=== PATIENT | male | born 1960 | race Caucasian/White ===

== ENCOUNTER 2020-09-15 07:56 | Outpatient (REF) | payer OTHER, SELFPAY ==
[2020-09-15 10:14] LABS: MANUAL DIFF FLAG NO
[2020-09-15 10:19] LABS: Basophils Absolute Auto 0.1 X10*3/uL (0.0-0.2); Basophils Percent Auto 0.9 % (0-2); Eosinophils Absolute Auto 0.4 X10*3/uL (0.0-0.4); Eosinophils Percent Auto 3.8 % (0-4); Hematocrit 45.3 % (42-52); Hemoglobin 15.9 g/dl (14.0-18.0); Imm Gran Abs Auto 0.03 X10*3/uL (0.00-0.03); Imm Gran Pct Auto 0.3 % (0.0-0.4); Lymphocytes Absolute Auto 2.5 X10*3/uL (1.2-4.9); Lymphocytes Percent Auto 27.1 % (20-40); Mean Corpuscular HGB Conc 35.1 g/dl (31.0-36.0); Mean Corpuscular Hemoglobin 32.1 pg (27.0-33.0); Mean Corpuscular Volume 91.5 fL (80-98); Mean Platelet Volume 10.7 fL (9.4-12.4); Monocytes Absolute Auto 0.6 X10*3/uL (0.1-1.2); Monocytes Percent Auto 6.4 % (2-11); Neutrophils Absolute Auto 5.6 X10*3/uL (2.0-8.3); Neutrophils Percent Auto 61.5 % (45-73); Platelet Count 204 X10*3/uL (160-400); Red Blood Count 4.95 X10*6/uL (4.60-5.80); Red Cell Distribution Width 11.9 % (11.0-16.0); White Blood Count 9.2 X10*3/uL (4.8-10.8)
[2020-09-15 10:44] LABS: Alanine Aminotransferase 15 U/L (0-40); Albumin Level 4.1 g/dL (3.5-5.0); Alkaline Phosphatase 92 U/L (39-117); Anion Gap 10 (12-20); Aspartate Amino Transferase 15 U/L (5-37); Bilirubin Total 1.1 mg/dL (0.0-1.0); Blood Urea Nitrogen 16 mg/dL (9-16); Calcium 8.7 mg/dL (8.4-10.2); Carbon Dioxide 30 mmol/L (22-29); Chloride 103 mmol/L (96-108); Cholesterol 158 mg/dL; Estimated Glomerular Filt Rate > 60; Glucose Fasting 93 mg/dL (60-99); HDL Cholesterol 41 mg/dL; LDL Cholesterol Calculated 101 mg/dl; Potassium 4.6 mmol/L (3.3-5.1); Sodium 138 mmol/L (135-145); Total Protein 6.3 g/dL (6.5-8.0); Triglycerides 80 mg/dL
== END 2020-09-15 07:57 | disposition home or self-care (01) ==
LOC: HO.10HDL 07:56
PROVIDERS: Visit Provider Internal Medicine Medical Oncology
DX: E78.2 Mixed hyperlipidemia (principal)
CPT/HCPCS: 36415; 80053; 80061; 85025

== ENCOUNTER → 2020-11-17 14:51 | Outpatient (BNVA) | payer OTHER, SELFPAY | PROVIDERS: PCP Internal Medicine Medical Oncology; Visit Provider Internal Medicine Cardiovascular Disease | DX: I25.10 Atherosclerotic heart disease of native coronary artery without angina pectoris (principal) | CPT/HCPCS: 93005 ==

== ENCOUNTER 2021-01-05 07:45 | Outpatient (REF) | payer OTHER, SELFPAY ==
[2021-01-05 08:37] LABS: MANUAL DIFF FLAG NO
[2021-01-05 08:47] LABS: Basophils Absolute Auto 0.1 X10*3/uL (0.0-0.2); Basophils Percent Auto 0.8 % (0-2); Eosinophils Absolute Auto 0.4 X10*3/uL (0.0-0.4); Eosinophils Percent Auto 5.1 % (0-4); Hematocrit 39.3 % (42-52); Hemoglobin 13.8 g/dl (14.0-18.0); Imm Gran Abs Auto 0.03 X10*3/uL (0.00-0.03); Imm Gran Pct Auto 0.4 % (0.0-0.4); Mean Corpuscular HGB Conc 35.1 g/dl (31.0-36.0); Mean Corpuscular Hemoglobin 32.1 pg (27.0-33.0); Mean Corpuscular Volume 91.4 fL (80-98); Mean Platelet Volume 10.5 fL (9.4-12.4); Monocytes Absolute Auto 0.5 X10*3/uL (0.1-1.2); Monocytes Percent Auto 6.8 % (2-11); Neutrophils Absolute Auto 4.8 X10*3/uL (2.0-8.3); Neutrophils Percent Auto 60.9 % (45-73); Platelet Count 161 X10*3/uL (160-400); Red Cell Distribution Width 12.2 % (11.0-16.0); White Blood Count 7.8 X10*3/uL (4.8-10.8)
[2021-01-05 09:08] LABS: Alanine Aminotransferase 14 U/L (0-40); Albumin Level 3.8 g/dL (3.5-5.0); Alkaline Phosphatase 100 U/L (39-117); Anion Gap 10 (12-20); Aspartate Amino Transferase 14 U/L (5-37); Blood Urea Nitrogen 15 mg/dL (9-16); Calcium 8.8 mg/dL (8.4-10.2); Carbon Dioxide 26 mmol/L (22-29); Chloride 107 mmol/L (96-108); Cholesterol 150 mg/dL; Estimated Glomerular Filt Rate > 60; Glucose Fasting 93 mg/dL (60-99); HDL Cholesterol 46 mg/dL; LDL Cholesterol Calculated 88 mg/dl; Potassium 4.5 mmol/L (3.3-5.1); Sodium 138 mmol/L (135-145); Triglycerides 84 mg/dL
[2021-01-06 14:22] LABS: Lyme Abs Screen <0.90 index
== END 2021-01-05 07:46 | disposition home or self-care (01) ==
LOC: HO.LAB 07:45
PROVIDERS: PCP Internal Medicine Medical Oncology; Visit Provider Internal Medicine Medical Oncology
DX: I10 Essential (primary) hypertension (principal); E78.2 Mixed hyperlipidemia
CPT/HCPCS: 36415; 80053; 80061; 85025; 86617; 86618

== ENCOUNTER → 2021-02-16 15:16 | Outpatient (BNVA) | payer OTHER, SELFPAY | PROVIDERS: PCP Internal Medicine Medical Oncology; Visit Provider Internal Medicine Cardiovascular Disease ==

== ENCOUNTER → 2021-08-17 14:57 | Outpatient (BNVA) | payer OTHER, SELFPAY | PROVIDERS: PCP Internal Medicine Medical Oncology; Visit Provider Internal Medicine Cardiovascular Disease ==

== ENCOUNTER 2021-08-26 13:56 | Outpatient (REF) | payer OTHER, SELFPAY ==
--- NOTE | ~2021-08-26 | US_ITS ---
EXAMINATION: ULTRASOUND RASHAWN COMPLETE CLINICAL INFORMATION: Leg pain. COMPARISON: None TECHNIQUE: Ankle brachial indices were calculated in the bilateral lower extremities. FINDINGS: Right ankle-brachial index is calculated as 1.15 on the right and 1.06 on the left. US/US RASHAWN complete IMPRESSION: Ankle brachial indices are in the range of normal, no significant arterial disease (0.97-1.25)
== END 2021-08-26 13:57 | disposition home or self-care (01) ==
LOC: HO.US 13:56
PROVIDERS: Visit Provider Internal Medicine Cardiovascular Disease
DX: M79.606 Pain in leg, unspecified (principal)
CPT/HCPCS: 93923

== ENCOUNTER → 2021-10-05 15:41 | Outpatient (BNVA) | payer OTHER, SELFPAY | PROVIDERS: PCP Internal Medicine Medical Oncology; Visit Provider Internal Medicine Cardiovascular Disease ==

== ENCOUNTER 2021-10-14 07:42 | Outpatient (REF) | payer OTHER, SELFPAY ==
[2021-10-14 07:53] LABS: MANUAL DIFF FLAG NO
[2021-10-14 08:16] LABS: Basophils Absolute Auto 0.1 X10*3/uL (0.0-0.2); Basophils Percent Auto 0.8 % (0-2); Eosinophils Absolute Auto 0.3 X10*3/uL (0.0-0.4); Eosinophils Percent Auto 2.4 % (0-4); Hematocrit 50.3 % (42.0-52.0); Hemoglobin 17.6 g/dl (14.0-18.0); Imm Gran Abs Auto 0.05 X10*3/uL (0.00-0.03); Imm Gran Pct Auto 0.4 % (0.0-0.4); Lymphocytes Absolute Auto 2.5 X10*3/uL (1.2-4.9); Lymphocytes Percent Auto 19.5 % (20-40); Mean Corpuscular Hemoglobin 32.6 pg (27.0-33.0); Mean Corpuscular Volume 93.1 fL (80.0-98.0); Mean Platelet Volume 10.2 fL (9.4-12.4); Monocytes Absolute Auto 0.9 X10*3/uL (0.1-1.2); Monocytes Percent Auto 6.7 % (2-11); Neutrophils Percent Auto 70.2 % (45-73); Platelet Count 266 X10*3/uL (160-400); Red Cell Distribution Width 12.5 % (11.0-16.0); White Blood Count 12.8 X10*3/uL (4.8-10.8)
[2021-10-14 08:44] LABS: Alanine Aminotransferase 21 U/L (0-40); Albumin Level 4.3 g/dL (3.5-5.0); Alkaline Phosphatase 111 U/L (39-117); Anion Gap 15 (12-20); Aspartate Amino Transferase 18 U/L (5-37); Bilirubin Total 1.1 mg/dL (0.0-1.0); Blood Urea Nitrogen 15 mg/dL (9-16); Calcium 9.6 mg/dL (8.4-10.2); Carbon Dioxide 24 mmol/L (22-29); Chloride 106 mmol/L (96-108); Cholesterol 130 mg/dL; Estimated Glomerular Filt Rate > 60; Glucose Fasting 96 mg/dL (60-99); HDL Cholesterol 42 mg/dL; LDL Cholesterol Calculated 76 mg/dl; Potassium 4.6 mmol/L (3.3-5.1); Sodium 140 mmol/L (135-145); Total Protein 6.8 g/dL (6.5-8.0); Triglycerides 64 mg/dL
[2021-10-14 09:06] LABS: Prostate Specific Antigen 0.96 ng/mL (<0.05-4.0)
== END 2021-10-14 07:43 | disposition home or self-care (01) ==
LOC: HO.LAB 07:42
PROVIDERS: PCP Internal Medicine Medical Oncology; Visit Provider Internal Medicine Medical Oncology
DX: I10 Essential (primary) hypertension (principal); E78.2 Mixed hyperlipidemia; M19.90 Unspecified osteoarthritis, unspecified site; I25.10 Atherosclerotic heart disease of native coronary artery without angina pectoris; N52.9 Male erectile dysfunction, unspecified; Z12.5 Encounter for screening for malignant neoplasm of prostate
CPT/HCPCS: 36415; 80053; 80061; 84153; 85025

== ENCOUNTER 2022-02-16 07:20 | Outpatient (REF) | payer OTHER, SELFPAY ==
[2022-02-16 07:37] LABS: MANUAL DIFF FLAG NO
[2022-02-16 07:59] LABS: Basophils Absolute Auto 0.1 X10*3/uL (0.0-0.2); Basophils Percent Auto 0.9 % (0-2); Eosinophils Absolute Auto 0.5 X10*3/uL (0.0-0.4); Eosinophils Percent Auto 5.2 % (0-4); Hematocrit 38.8 % (42.0-52.0); Imm Gran Abs Auto 0.03 X10*3/uL (0.00-0.03); Imm Gran Pct Auto 0.3 % (0.0-0.4); Lymphocytes Percent Auto 23.1 % (20-40); Mean Corpuscular HGB Conc 33.5 g/dl (31.0-36.0); Mean Corpuscular Hemoglobin 30.4 pg (27.0-33.0); Mean Corpuscular Volume 90.7 fL (80.0-98.0); Mean Platelet Volume 10.5 fL (9.4-12.4); Monocytes Absolute Auto 0.5 X10*3/uL (0.1-1.2); Monocytes Percent Auto 6.1 % (2-11); Neutrophils Absolute Auto 5.6 x10*3/uL (2.0-8.3); Neutrophils Percent Auto 64.4 % (45-73); Platelet Count 214 X10*3/uL (160-400); Red Blood Count 4.28 X10*6/uL (4.60-5.80); Red Cell Distribution Width 12.5 % (11.0-16.0); White Blood Count 8.7 X10*3/uL (4.8-10.8)
[2022-02-16 08:12] LABS: Alanine Aminotransferase 11 U/L (0-40); Albumin Level 3.8 g/dL (3.5-5.0); Alkaline Phosphatase 94 U/L (39-117); Anion Gap 10 (12-20); Aspartate Amino Transferase 13 U/L (5-37); Bilirubin Total 0.7 mg/dL (0.0-1.0); Blood Urea Nitrogen 17 mg/dL (9-16); Calcium 8.6 mg/dL (8.4-10.2); Carbon Dioxide 26 mmol/L (22-29); Chloride 108 mmol/L (96-108); Cholesterol 124 mg/dL; Estimated Glomerular Filt Rate > 60; Glucose Fasting 104 mg/dL (60-99); HDL Cholesterol 42 mg/dL; LDL Cholesterol Calculated 72 mg/dl; Potassium 4.7 mmol/L (3.3-5.1); Sodium 139 mmol/L (135-145); Total Protein 5.9 g/dL (6.5-8.0); Triglycerides 50 mg/dL
[2022-02-16 08:34] LABS: Prostate Specific Antigen 0.67 ng/mL (<0.05-4.0)
== END 2022-02-16 07:21 | disposition home or self-care (01) ==
LOC: HO.LAB 07:20
PROVIDERS: PCP Internal Medicine Medical Oncology; Visit Provider Internal Medicine Medical Oncology
DX: Z12.5 Encounter for screening for malignant neoplasm of prostate (principal); I10 Essential (primary) hypertension; E78.2 Mixed hyperlipidemia; N52.9 Male erectile dysfunction, unspecified
CPT/HCPCS: 36415; 80053; 80061; 84153; 85025

== ENCOUNTER → 2022-04-12 15:40 | Outpatient (BNVA) | payer OTHER, SELFPAY | PROVIDERS: PCP Internal Medicine Medical Oncology; Referring Provider Internal Medicine Medical Oncology; Visit Provider Internal Medicine Cardiovascular Disease | DX: I48.0 Paroxysmal atrial fibrillation (principal); I25.10 Atherosclerotic heart disease of native coronary artery without angina pectoris | CPT/HCPCS: 93005 ==

== ENCOUNTER → 2022-05-12 07:25 | Outpatient (REF) | payer OTHER, SELFPAY ==
--- NOTE | 2022-05-12 07:41 | HM_ITS ---
* Total monitoring time 3 days. * Underlying rhythm is sinus and atrial fibrillation. Atrial fibrillation burden is 45%. * Average ventricular rate 69/Min. Range 43 to 169/Min. About 6% of the time, rate greater than 100/Min. * Frequent supraventricular ectopy. Pa[place] of 3%. * Rare ventricular ectopy with minimal burden. * No patient diary. * Overall, high burden of atrial fibrillation with some rapid rates. MTDD
--- NOTE | 2022-05-12 07:41 | CA_ITS ---
Transthoracic Echocardiogram Patient (Last, First, Middle): Dino Sims A Gender: Male Date of : 1960 Age: 61 Procedure Date: 05/12/2022 Procedure Type: Transthoracic Echocardiogram Location: OP Height: 182.88 cm Weight: 81.65 kg BSA: 2.04 m2 Heart Rate: 56 bpm BP: 125 / 90 mmHg Chief Writer: DYLAN Mitchell MD: Eric Lucas MD Symptoms: I48.0 - Paroxysmal atrial fibrillation Study Quality: Good ECG Rhythm: Atrial Fibrillation Conclusions: - Normal left ventricular size, thickness, systolic function, and wall motion. The visually estimated ejection fraction is between 55-60%. Diastolic function is indeterminate on the basis of available data. - Normal right ventricular cavity size and systolic function. - There is mild dilatation of the sinuses of Valsalva measuring 3.80 cm and mild dilatation of the ascending aorta measuring 3.40 cm. Findings Left Ventricle Normal left ventricular size, thickness, systolic function, and wall motion. The visually estimated ejection fraction is between 55-60%. Diastolic function is indeterminate on the basis of available data. Right Ventricle Normal right ventricular cavity size and systolic function. Atria The left atrium is normal in size. The right atrium is normal in size. Aortic Valve The aortic valve structure and function is likely normal. There is no aortic valve stenosis. There is no aortic valve regurgitation. Mitral Valve The mitral valve appears normal. There is no mitral valve regurgitation. There is no mitral valve stenosis. Pulmonic Valve The pulmonic valve is likely normal. Tricuspid Valve Normal tricuspid valve structure and function. There is no tricuspid valve regurgitation. Normal right atrial pressure. There is no evidence of pulmonary hypertension. Great Vessels There is mild dilatation of the sinuses of Valsalva measuring 3.80 cm and mild dilatation of the ascending aorta measuring 3.40 cm. Venous The inferior vena cava is normal in size and collapses greater than 50% with inspiration. Pericardium/Pleural There is no evidence of pericardial effusion. Prior Study Comparison Changes noted compared to prior study dated: 09/09/2018. Mildly dilated aortic root and ascending aorta. The patient is in Afib during this study. Measurements 2D Linear Measurements IVSd: 1.17 0.6-0.9/0.6-1.0 cm LVIDd: 3.88 3.9-5.3/4.2-5.9 cm LVIDd Index: 1.90 2.4-3.2/2.2-3.1 cm/m2 LVIDs: 2.94 2.0-3.6 cm LVPWd: 1.22 0.7-1.1 cm LA Diam: 3.20 2.7-3.8/3.0-4.0 cm LAIDs Index: 1.57 1.5-2.3 cm/m2 LV Mass: 195.60 67-162/88-224 g LV Mass Index: 95.88 43-95/49-115 g/m2 LVOT Diam: 2.20 3.0+(-)1.3 cm 2D Systolic Function EF 4C: 50.80 >55% EF 2C: 55.80 >55% EF BiP: 52.80 >55% Aortic Valve AoV Pk Luiz: 0.81 AoV Mn Luiz: 0.58 AoV VTI: 0.15 AoV Pk Grad: 3.00 Aov Mn Grad: 2.00 EVA Cont.VTI: 2.41 LVOT LVOT Pk Luiz: 0.49 LVOT Mn Luiz: 0.36 LVOT VTI: 0.10 LVOT Pk Grad: 1.00 LVOT Mn Grad: 1.00 LVOT Diam: 2.20 LVOT Area: 3.80 Right Ventricle TAPSE (mm): 15.50 TVS' Luiz: 9.25 Tricuspid Valve TR Pk Luiz: 1.64 TR Pk Grad: 11.00 RA Press: 3.00 RVSP: 14.00 Great Vessels Aorta Sinus of Valsalva: 3.80 2.0-3.5 cm Ao Asc: 3.40 2.1-3.4 cm Pulmonary Valve PV Pk Luiz: 0.61 Peak PV Grad: 1.00 Updated in Other Vendor System with Status of Final Eric Lucas MD electronically signed on 05/12/2022 9:10:27 PM with status of Final
== END ==
LOC: HO.CARD 07:25
PROVIDERS: Visit Provider Internal Medicine Cardiovascular Disease
DX: I48.0 Paroxysmal atrial fibrillation (principal)
CPT/HCPCS: 93242; 93306

== ENCOUNTER 2022-08-28 17:05 | Outpatient (REF) | payer OTHER, SELFPAY ==
--- NOTE | ~2022-08-28 | XR_ITS ---
EXAMINATION: XR SHOULDER, RIGHT CLINICAL INFORMATION: Pain. COMPARISON: None TECHNIQUE: AP external rotation, Grashey, scapular Y, and axillary views of the right shoulder. FINDINGS: Bony alignment and mineralization are normal. The glenohumeral joint is intact. There is minimal osteoarthritic change of the glenohumeral joint. The acromioclavicular and coracoclavicular intervals are normal. No fracture or dislocation is seen. There is no soft tissue calcification or foreign body. No right pneumothorax is seen. XR/XR shoulder RT min 2V IMPRESSION: 1. No fracture or dislocation is seen. 2. There is minimal osteoarthritic change of the right glenohumeral joint. EXAMINATION: XR SHOULDER, LEFT CLINICAL INFORMATION: Pain. COMPARISON: Radiographs dated 04/20/2020. TECHNIQUE: AP external rotation, Grashey, scapular Y, and axillary views of the left shoulder. FINDINGS: Bony alignment and mineralization are normal. The glenohumeral joint is intact and shows mild osteoarthritic change. The acromioclavicular and coracoclavicular intervals are normal. The glenohumeral joint is intact. There is mild cortical irregularity of the greater tuberosity of the proximal left humerus. No fracture or dislocation is seen. There is no soft tissue calcification or foreign body. No left pneumothorax is seen. IMPRESSION: 1. No fracture or dislocation is seen. 2. There is mild osteoarthritic change of the left glenohumeral joint. 3. Findings suggest possible mild left rotator cuff impingement.
--- NOTE | ~2022-08-28 | XR_ITS ---
EXAMINATION: XR SHOULDER, RIGHT CLINICAL INFORMATION: Pain. COMPARISON: None TECHNIQUE: AP external rotation, Grashey, scapular Y, and axillary views of the right shoulder. FINDINGS: Bony alignment and mineralization are normal. The glenohumeral joint is intact. There is minimal osteoarthritic change of the glenohumeral joint. The acromioclavicular and coracoclavicular intervals are normal. No fracture or dislocation is seen. There is no soft tissue calcification or foreign body. No right pneumothorax is seen. XR/XR shoulder LT min 2V IMPRESSION: 1. No fracture or dislocation is seen. 2. There is minimal osteoarthritic change of the right glenohumeral joint. EXAMINATION: XR SHOULDER, LEFT CLINICAL INFORMATION: Pain. COMPARISON: Radiographs dated 04/20/2020. TECHNIQUE: AP external rotation, Grashey, scapular Y, and axillary views of the left shoulder. FINDINGS: Bony alignment and mineralization are normal. The glenohumeral joint is intact and shows mild osteoarthritic change. The acromioclavicular and coracoclavicular intervals are normal. The glenohumeral joint is intact. There is mild cortical irregularity of the greater tuberosity of the proximal left humerus. No fracture or dislocation is seen. There is no soft tissue calcification or foreign body. No left pneumothorax is seen. IMPRESSION: 1. No fracture or dislocation is seen. 2. There is mild osteoarthritic change of the left glenohumeral joint. 3. Findings suggest possible mild left rotator cuff impingement.
== END 2022-08-28 17:06 | disposition home or self-care (01) ==
LOC: HO.HOSX 17:05
PROVIDERS: Visit Provider Physician Assistant
DX: M75.101 Unspecified rotator cuff tear or rupture of right shoulder, not specified as traumatic (principal); M75.102 Unspecified rotator cuff tear or rupture of left shoulder, not specified as traumatic
CPT/HCPCS: 20610; 73030; J1040

== ENCOUNTER → 2023-01-15 15:34 | Outpatient (BNVA) | payer OTHER, SELFPAY | PROVIDERS: PCP Internal Medicine Medical Oncology; Referring Provider Internal Medicine Medical Oncology; Visit Provider Internal Medicine Cardiovascular Disease | DX: I48.0 Paroxysmal atrial fibrillation (principal); I25.10 Atherosclerotic heart disease of native coronary artery without angina pectoris | CPT/HCPCS: 93005 ==

== ENCOUNTER 2023-02-09 08:49 | Outpatient (REF) | payer OTHER, SELFPAY ==
[2023-02-09 09:13] LABS: MANUAL DIFF FLAG NO
[2023-02-09 09:44] LABS: Basophils Absolute Auto 0.1 X10*3/uL (0.0-0.2); Basophils Percent Auto 1.1 % (0-2); Eosinophils Absolute Auto 0.4 X10*3/uL (0.0-0.4); Eosinophils Percent Auto 5.3 % (0-4); Hematocrit 36.2 % (42.0-52.0); Hemoglobin 11.5 g/dl (14.0-18.0); Imm Gran Abs Auto 0.02 X10*3/uL (0.00-0.03); Imm Gran Pct Auto 0.3 % (0.0-0.4); Lymphocytes Absolute Auto 1.8 X10*3/uL (1.2-4.9); Lymphocytes Percent Auto 24.5 % (20-40); Mean Corpuscular HGB Conc 31.8 g/dl (31.0-36.0); Mean Corpuscular Hemoglobin 25.1 pg (27.0-33.0); Mean Corpuscular Volume 78.9 fL (80.0-98.0); Mean Platelet Volume 10.2 fL (9.4-12.4); Monocytes Absolute Auto 0.5 X10*3/uL (0.1-1.2); Monocytes Percent Auto 7.3 % (2-11); Neutrophils Absolute Auto 4.6 x10*3/uL (2.0-8.3); Neutrophils Percent Auto 61.5 % (45-73); Platelet Count 240 X10*3/uL (160-400); Red Blood Count 4.59 X10*6/uL (4.60-5.80); Red Cell Distribution Width 14.8 % (11.0-16.0); White Blood Count 7.4 X10*3/uL (4.8-10.8)
[2023-02-09 10:45] LABS: Alanine Aminotransferase 18 U/L (0-40); Albumin Level 3.9 g/dL (3.5-5.0); Alkaline Phosphatase 117 U/L (39-117); Anion Gap 13 (12-20); Aspartate Amino Transferase 16 U/L (5-37); Bilirubin Total 0.7 mg/dL (0.0-1.0); Blood Urea Nitrogen 18 mg/dL (9-16); Calcium 9.2 mg/dL (8.4-10.2); Carbon Dioxide 25 mmol/L (22-29); Chloride 109 mmol/L (96-108); Cholesterol 121 mg/dL; Estimated Glomerular Filt Rate > 60; Glucose Random 86 mg/dL (60-115); HDL Cholesterol 43 mg/dL; LDL Cholesterol Calculated 70 mg/dl; Potassium 5.1 mmol/L (3.3-5.1); Sodium 142 mmol/L (135-145); Total Protein 6.4 g/dL (6.5-8.0); Triglycerides 41 mg/dL
[2023-02-09 10:53] LABS: Prostate Specific Antigen 0.81 ng/mL (<0.05-4.0)
== END 2023-02-09 08:50 | disposition home or self-care (01) ==
LOC: HO.LAB 08:49
PROVIDERS: PCP Internal Medicine Medical Oncology; Visit Provider Internal Medicine Medical Oncology
DX: Z12.5 Encounter for screening for malignant neoplasm of prostate (principal); I10 Essential (primary) hypertension; E78.2 Mixed hyperlipidemia; N40.0 Benign prostatic hyperplasia without lower urinary tract symptoms
CPT/HCPCS: 36415; 80053; 80061; 84153; 85025

== ENCOUNTER 2023-02-24 07:27 | Outpatient (REF) | payer OTHER, SELFPAY ==
[2023-02-24 07:58] LABS: MANUAL DIFF FLAG NO
[2023-02-24 08:27] LABS: Basophils Absolute Auto 0.1 X10*3/uL (0.0-0.2); Basophils Percent Auto 1.3 % (0-2); Eosinophils Absolute Auto 0.4 X10*3/uL (0.0-0.4); Eosinophils Percent Auto 5.4 % (0-4); Hemoglobin 11.7 g/dl (14.0-18.0); Imm Gran Abs Auto 0.03 X10*3/uL (0.00-0.03); Imm Gran Pct Auto 0.4 % (0.0-0.4); Immature Retic Fraction 16.5 % (2.3-13.4); Lymphocytes Absolute Auto 2.1 X10*3/uL (1.2-4.9); Mean Corpuscular HGB Conc 31.6 g/dl (31.0-36.0); Mean Corpuscular Volume 79.1 fL (80.0-98.0); Mean Platelet Volume 10.8 fL (9.4-12.4); Monocytes Absolute Auto 0.6 X10*3/uL (0.1-1.2); Neutrophils Absolute Auto 4.3 x10*3/uL (2.0-8.3); Neutrophils Percent Auto 56.9 % (45-73); Platelet Count 227 X10*3/uL (160-400); Red Blood Count 4.68 X10*6/uL (4.60-5.80); Red Cell Distribution Width 15.4 % (11.0-16.0); Retic HGB Equivalent 28.9 pg (30.0-35.0); Reticulocyte Percent 1.2 % (0.5-1.8); Reticulocytes Absolute 0.054 X10*6/uL (0.026-0.095); White Blood Count 7.6 X10*3/uL (4.8-10.8)
[2023-02-24 08:46] LABS: Iron 37 mcg/dL (45-160); Percent Iron Saturation 10 % (15-50); Total Iron Binding Capacity 355 mcg/dL (228-428); Unsaturated Iron Binding 318 ug/dL
[2023-02-24 09:02] LABS: Ferritin 15 ng/mL (20-250)
== END 2023-02-24 07:28 | disposition home or self-care (01) ==
LOC: HO.LAB 07:27
PROVIDERS: PCP Internal Medicine Medical Oncology; Visit Provider Internal Medicine Medical Oncology
DX: I10 Essential (primary) hypertension (principal); D50.9 Iron deficiency anemia, unspecified
CPT/HCPCS: 36415; 82728; 83540; 85025; 85045

== ENCOUNTER 2023-03-28 06:18 | Outpatient (REF) | payer OTHER, SELFPAY ==
[2023-03-28 06:28] LABS: MANUAL DIFF FLAG NO
[2023-03-28 07:29] LABS: Basophils Absolute Auto 0.1 X10*3/uL (0.0-0.2); Basophils Percent Auto 1.1 % (0-2); Eosinophils Absolute Auto 0.3 X10*3/uL (0.0-0.4); Eosinophils Percent Auto 3.5 % (0-4); Hematocrit 39.4 % (42.0-52.0); Hemoglobin 12.9 g/dl (14.0-18.0); Imm Gran Abs Auto 0.03 X10*3/uL (0.00-0.03); Imm Gran Pct Auto 0.4 % (0.0-0.4); Lymphocytes Absolute Auto 2.1 X10*3/uL (1.2-4.9); Lymphocytes Percent Auto 26.5 % (20-40); Mean Corpuscular HGB Conc 32.7 g/dl (31.0-36.0); Mean Corpuscular Hemoglobin 27.5 pg (27.0-33.0); Mean Platelet Volume 10.9 fL (9.4-12.4); Monocytes Absolute Auto 0.5 X10*3/uL (0.1-1.2); Monocytes Percent Auto 6.5 % (2-11); Neutrophils Absolute Auto 4.9 x10*3/uL (2.0-8.3); Platelet Count 238 X10*3/uL (160-400); Red Blood Count 4.69 X10*6/uL (4.60-5.80); Red Cell Distribution Width 21.2 % (11.0-16.0)
[2023-03-28 08:33] LABS: Ferritin 84 ng/mL (20-250)
== END 2023-03-28 06:19 | disposition home or self-care (01) ==
LOC: HO.LAB 06:18
PROVIDERS: PCP Internal Medicine Medical Oncology; Visit Provider Internal Medicine Medical Oncology
DX: D50.9 Iron deficiency anemia, unspecified (principal); K21.9 Gastro-esophageal reflux disease without esophagitis
CPT/HCPCS: 36415; 82728; 85025

== ENCOUNTER 2023-04-12 06:26 | Day surgery (SDC) | payer OTHER, SELFPAY ==
--- NOTE | 2023-04-11 10:49 | HO.ANESPROP2 ---
HPI - Anesthesia Eval Consult details Narrative: 62yo M for Upper Endoscopy with Balloon Dilitation, Colonoscopy Optimized per cardio and ok to hold OAC Follows [facility] cardiology for afib (eliquis) and CAD with stent. Last seen 12/2022. Stable in sinus, no symptoms. 6 month f/u. [facility] Active Problems Active Problems: All Active Problems (Updated 08/28/22 @ 14:22 by Jessica Salmeron) Painful arc syndrome of left shoulder (Acute) Painful arc syndrome of right shoulder (Acute) PAF (paroxysmal atrial fibrillation) (Acute) Raynauds phenomenon (Acute) Leg pain (Acute) Coronary artery disease (Acute) Past Medical History Medical History Hyperlipemia Arthritis Family History Family History Father CAD (coronary artery disease) Mother HTN (hypertension) CAD (coronary artery disease) Surgical History Surgical History H/O heart artery stent History of elbow surgery History of mandibular surgery History of cardiac cath Social History Social History Alcohol intake: current Alcohol intake frequency: a few times a week Alcohol type: beer Patient Tobacco Use Status: Former Tobacco user Quit Date: 2019 Years Smoked: 40+ Use of substances other than those prescribed or required for medical reasons: Yes Substance Use Type Other:: occas Are you DNR?: No Advance Directives: No Advance Directives Information Provided: Yes Meds Allergies Allergy/AdvReac Type Severity Reaction Status Date / Time penicillin G Allergy Unknown Unknown Verified 01/15/23 15:41 Home Medications Medication Instructions Recorded Confirmed Last Taken Type aspirin 81 mg tablet,delayed 81 mg PO DAILY 11/17/20 04/12/23 04/10/23 History release (Adult Low Dose Aspirin) Exam Exam Date and Time: April 11, 2023 1049 Pertinent Lab Results Pertinent Lab Results: Laboratory Tests 02/09/23 02/09/23 03/28/23 09:11 09:11 06:25 WBC 8.0 Hgb 12.9 L Hct 39.4 L Plt Count 238 Sodium 142 Potassium 5.1 Chloride 109 H Carbon Dioxide 25 BUN 18 H Creatinine 1.13 Narrative Narrative: EKG 12/2022 Sinus bradycardia 54 beats per minute, left atrial enlargement, QTC 392 milliseconds. ECHO 2021 Conclusions: - Normal left ventricular size, thickness, systolic function, and wall motion. The visually estimated ejection fraction is between 55-60%. Diastolic function is indeterminate on the basis of available data. - Normal right ventricular cavity size and systolic function. - There is mild dilatation of the sinuses of Valsalva measuring 3.80 cm and mild dilatation of the ascending aorta measuring 3.40 cm. Assessment and Plan Assessment Anesthesia Assessment: Chart Reviewed
[2023-04-12 06:43] VITALS: BP 127/90; PULSE 87; RESP 18; TEMP 36.1; O2SAT 98; BMI 24.1
[2023-04-12] MEDS: Lactated Ringers 1,000 ML 100 ML IVCONT (07:16)
--- NOTE | 2023-04-12 07:52 | P.CONAN_ITS ---
[facility] Active Problems Active Problems: All Active Problems (Updated 08/28/22 @ 14:22 by Jessica Salmeron) Painful arc syndrome of left shoulder (Acute) Painful arc syndrome of right shoulder (Acute) PAF (paroxysmal atrial fibrillation) (Acute) Raynauds phenomenon (Acute) Leg pain (Acute) Coronary artery disease (Acute) Past Medical History Medical History Hyperlipemia Arthritis Family History Family History Father CAD (coronary artery disease) Mother HTN (hypertension) CAD (coronary artery disease) Surgical History Surgical History H/O heart artery stent History of elbow surgery History of mandibular surgery History of cardiac cath Social History Social History Alcohol intake: current Alcohol intake frequency: a few times a week Alcohol type: beer Patient Tobacco Use Status: Former Tobacco user Quit Date: 2019 Years Smoked: 40+ Use of substances other than those prescribed or required for medical reasons: Yes Substance Use Type Other:: occas Are you DNR?: No Advance Directives: No Advance Directives Information Provided: Yes Meds Allergies Allergy/AdvReac Type Severity Reaction Status Date / Time penicillin G Allergy Unknown Unknown Verified 01/15/23 15:41 Active Medications: Current Medications Lactated Ringer's (Lr) 1,000 mls @ 100 mls/hr IVCONT .Q10H OSCAR Last Admin: 04/12/23 07:16 Dose: 100 mls/hr Sodium Biphosphate/Sodium Phosphate (Sodium Phosphate,Noble-Dibasic 133 Ml Enema) 133 ml DC ONCE PRN PRN Reason: Poor Colonoscopy Prep Results Home Medications Medication Instructions Recorded Confirmed Last Taken Type aspirin 81 mg tablet,delayed 81 mg PO DAILY 11/17/20 04/12/23 04/10/23 History release (Adult Low Dose Aspirin) Exam Exam Date and Time: April 12, 2023 0752 Height,Weight and Vital Signs: Height 6 ft Weight 80.739 kg Last Vital Signs Temp 96.9 F 04/12/23 06:43 Pulse 87 04/12/23 06:43 Resp 18 04/12/23 06:43 BP 127/90 H 04/12/23 06:43 Pulse Ox 98 04/12/23 06:43 O2 Del Method Room Air 04/12/23 06:43 Airway Mallampati Class: II TM Dist: >3cm Neck ROM: Full Heart: Irreg. Lungs: CTA Assessment and Plan Assessment Anesthesia Assessment: Anesthesia Plan Discussed Final Anesthetic Review ASA Class: II Final Preanesthetic Review: Meds/Allgs Chart Reviewed, Consent Obtained/Reviewed and Anes Risks/Benef Reviewed Patient Risk: Low Procedure Risk: Low Anesthetic Plan Anesthetic Plan: MAC: Disposition: Standard PACU
[2023-04-12 08:35] VITALS: BP 104/49; PULSE 71; RESP 16; TEMP 36.8; O2SAT 97
--- NOTE | 2023-04-12 08:41 | PM.OP ---
Brief Operative Note Date of Service: 04/12/23 Pre-op diagnosis: Dysphagia, Anemia Post-op diagnosis: other (Mass at GE Junction, Colon polyp) Procedure: EGD with biopsies, Colonoscopy to the cecum with hot snare polypectomy and placement of 3 Resolution clips Surgeon: Eleuterio Pinead Anesthesia: MAC Was an [employer]ing [employer] Instructor used for this Procedure?: No Estimated blood loss (mL): 2.0 Pathology: other (A. Mass at GE Junction B. Polyp at 20cm) Condition: stable Disposition: PACU
[2023-04-12 08:50] VITALS: BP 110/86; PULSE 78; RESP 16; O2SAT 97
[2023-04-12 09:05] VITALS: BP 109/82; PULSE 83; RESP 16; TEMP 36.8; O2SAT 100
--- NOTE | 2023-04-12 10:32 | HO.POSTANES ---
Post Anesthesia Evaluation Post Anesthesia Evaluation Date of Service: 04/12/23 Vital Signs: Vital Signs Temp Pulse Resp BP Pulse Ox O2 Del Method 04/12/23 09:05 98.2 F 83 16 109/82 100 Room Air 04/12/23 08:50 78 16 110/86 97 Room Air 04/12/23 08:35 98.2 F 71 16 104/49 L 97 Room Air 04/12/23 06:43 96.9 F 87 18 127/90 H 98 Room Air Anesthesia: Monitored Mental Status: Awake Pain Control: Satisfactory Nausea/Vomiting: None Hydration: Adequate Anesthesia-Related Issues: No Anes. Related Issues
--- NOTE | 2023-04-12 21:39 | OP_ITS ---
DATE OF SERVICE: 04/12/2023 SURGEON: Eleuterio Pineda MD INDICATIONS: The patient presents for evaluation of dysphagia, upper abdominal pain, iron-deficiency anemia, and colorectal cancer screening. Full consent has been obtained from him for both procedures, including risks of bleeding and perforation. PREOPERATIVE DIAGNOSIS: POSTOPERATIVE DIAGNOSIS: PROCEDURE PERFORMED: ESTIMATED BLOOD LOSS: COMPLICATIONS: ANESTHESIA: Monitored anesthesia care. ASSISTANTS: SPECIMENS: PREOPERATIVE DIAGNOSES: Dysphagia, upper abdominal pain, iron-deficiency anemia, and colorectal cancer screening. POSTOPERATIVE DIAGNOSES: Dysphagia, upper abdominal pain, iron-deficiency anemia, and colorectal cancer screening, mass at gastroesophageal junction, colon polyp, diverticulosis, and internal hemorrhoids. PROCEDURES PERFORMED: Esophagogastroduodenoscopy with biopsies, and colonoscopy to the cecum with hot snare polypectomy x1 with placement of 3 Resolution clips. DESCRIPTION OF PROCEDURE: The patient was placed in the left lateral decubitus position. The Olympus video gastroscope was passed into the posterior oropharynx and upper esophagus under direct vision. The scope was passed slowly to the distal esophagus. The gastroesophageal junction appeared at 39 cm. At this level, I was able to visualize a mass coming into the very distal esophagus from the stomach. The mass was somewhat ulcerated and friable. The scope did easily pass this and enter the stomach. The scope was advanced to the pylorus and the duodenum was cannulated to the descending portion. The duodenum including the bulb appeared normal without mass or ulceration. The scope was withdrawn back to the stomach. The gastric antrum and body appeared normal with good peristalsis. The scope was retroflexed, visualizing the proximal stomach carefully. In the proximal stomach was a nearly circumferential mass surrounding the GE junction. It was somewhat friable. Multiple biopsies were obtained from this primarily in the forward viewing position from the very distal esophagus. The esophageal mucosa otherwise appeared normal. The scope was withdrawn from the patient. He was turned around for the colonoscopy. The digital rectal exam revealed no abnormalities. The Olympus video pediatric colonoscope was entered into the rectum and advanced easily to the cecum. Once in the cecum, I did identify normal-appearing cecal pouch with appendiceal orifice and a normal-appearing ileocecal valve. There was transillumination of light deep in the right lower quadrant. The entire cecum and ileocecal valve appeared normal. The scope was then slowly withdrawn assessing all mucosal surfaces carefully. Preparation was excellent. At 20 cm was an approximately 1 cm polyp on a short stalk, which was removed by hot snare polypectomy and recovered by withdrawing it on the tip of the scope from the patient. The scope was readvanced back to the polypectomy site, which appeared clean, without any sign of residual polyp nor bleeding. Three Resolution clips were placed on the polypectomy site with good deployment and good hemostasis. I did not visualize any other polyps, colitis, or angiodysplasia. There was a mild amount of sigmoid diverticulosis. In the rectum, scope was retroflexed visualizing internal hemorrhoids, but no other pathology. The rectal mucosa appeared normal. Scope was straightened and withdrawn from the patient. He tolerated the procedure well and was returned to the recovery area in stable condition. IMPRESSION: 1. Mass at the gastroesophageal junction, status post biopsy. 2. Colon polyp. 3. Diverticulosis. 4. Internal hemorrhoids. PLAN: The results of the pathology will be checked. The lesion at the gastroesophageal junction clearly appears consistent with a neoplasm. I did review this with the patient and his today in detail. I advised them of the need to follow up with Dr. Zuñiga as soon as possible such that he can review the pathology results and then plan a treatment protocol, which may very well include some chemotherapy and radiation, prior to consideration of surgical resection, depending upon how his staging appears on the imaging studies. He will need a CT scan and/or PET-CT scan. He was advised to resume his aspirin on 04/16 and Eliquis on 04/18. He was also advised to resume his iron on Sunday, 04/16. I shall start him on omeprazole 40 mg daily and will send a prescription to his pharmacy for that. He was advised to continue a very careful diet with cutting up food in small pieces and eating very slowly. He was advised to drink fluid to help the food go down. I did advise him to avoid hard food like steak, so as to try to avoid any esophageal obstructions. He has been given all of this in written instructions. MD JARVIS Orr/MATEO / [phone] PREET
== END 2023-04-12 09:18 | disposition home or self-care (01) ==
PROVIDERS: PCP Internal Medicine Medical Oncology; Visit Provider Internal Medicine
PROC: (CPT 45385; principal; 2023-04-12 07:30)
PROC: 0DJD8ZZ Inspection of Lower Intestinal Tract, Via Natural or Artificial Opening Endoscopic (ICD-10-PCS; CPT 45378; 2023-04-12 07:30)
DX: Z12.11 Encounter for screening for malignant neoplasm of colon (principal); D12.5 Benign neoplasm of sigmoid colon; K57.30 Diverticulosis of large intestine without perforation or abscess without bleeding; K64.8 Other hemorrhoids; D50.9 Iron deficiency anemia, unspecified; R10.13 Epigastric pain; C16.0 Malignant neoplasm of cardia; R19.30 Abdominal rigidity, unspecified site; I73.00 Raynaud's syndrome without gangrene; I48.0 Paroxysmal atrial fibrillation; E78.5 Hyperlipidemia, unspecified; I25.10 Atherosclerotic heart disease of native coronary artery without angina pectoris; Z95.5 Presence of coronary angioplasty implant and graft; Z87.891 Personal history of nicotine dependence; Z79.01 Long term (current) use of anticoagulants; Z79.82 Long term (current) use of aspirin; Z88.0 Allergy status to penicillin
CPT/HCPCS: 45385; 43239; 88305; 88342; 88360

== ENCOUNTER 2023-04-23 06:10 | Outpatient (REF) | payer OTHER, SELFPAY ==
[2023-04-23 06:20] LABS: MANUAL DIFF FLAG NO
[2023-04-23 07:17] LABS: Basophils Absolute Auto 0.1 X10*3/uL (0.0-0.2); Basophils Percent Auto 1.2 % (0-2); Eosinophils Absolute Auto 0.4 X10*3/uL (0.0-0.4); Eosinophils Percent Auto 5.1 % (0-4); Hematocrit 48.2 % (42.0-52.0); Hemoglobin 16.1 g/dl (14.0-18.0); Imm Gran Abs Auto 0.03 X10*3/uL (0.00-0.03); Imm Gran Pct Auto 0.3 % (0.0-0.4); Lymphocytes Absolute Auto 2.5 X10*3/uL (1.2-4.9); Lymphocytes Percent Auto 28.9 % (20-40); Mean Corpuscular HGB Conc 33.4 g/dl (31.0-36.0); Mean Corpuscular Hemoglobin 28.4 pg (27.0-33.0); Mean Platelet Volume 10.8 fL (9.4-12.4); Monocytes Absolute Auto 0.8 X10*3/uL (0.1-1.2); Monocytes Percent Auto 9.1 % (2-11); Neutrophils Absolute Auto 4.8 x10*3/uL (2.0-8.3); Neutrophils Percent Auto 55.4 % (45-73); Platelet Count 288 X10*3/uL (160-400); Red Blood Count 5.67 X10*6/uL (4.60-5.80); Red Cell Distribution Width 17.6 % (11.0-16.0); White Blood Count 8.7 X10*3/uL (4.8-10.8)
[2023-04-23 07:37] LABS: Alanine Aminotransferase 13 U/L (0-40); Albumin Level 3.9 g/dL (3.5-5.0); Alkaline Phosphatase 121 U/L (39-117); Anion Gap 16 (12-20); Aspartate Amino Transferase 14 U/L (5-37); Bilirubin Total 0.4 mg/dL (0.0-1.0); Blood Urea Nitrogen 13 mg/dL (9-16); Calcium 9.3 mg/dL (8.4-10.2); Carbon Dioxide 24 mmol/L (22-29); Chloride 103 mmol/L (96-108); Estimated Glomerular Filt Rate 57; Glucose Random 113 mg/dL (60-115); Potassium 4.2 mmol/L (3.3-5.1); Sodium 139 mmol/L (135-145); Total Protein 6.7 g/dL (6.5-8.0)
== END 2023-04-23 06:11 | disposition home or self-care (01) ==
LOC: HO.LAB 06:10
PROVIDERS: PCP Internal Medicine Medical Oncology; Visit Provider Internal Medicine Medical Oncology
DX: C15.9 Malignant neoplasm of esophagus, unspecified (principal); C16.0 Malignant neoplasm of cardia
CPT/HCPCS: 36415; 80053; 85025

== ENCOUNTER 2023-04-24 09:22 | Outpatient (REF) | payer OTHER, SELFPAY ==
--- NOTE | ~2023-04-24 | CT_ITS ---
EXAMINATION: CT CHEST, ABDOMEN AND PELVIS WITH CONTRAST CLINICAL INFORMATION: Esophageal cancer. COMPARISON: None. TECHNIQUE: Multidetector volumetric CT imaging of the chest, abdomen, and pelvis was performed after the administration of 85 mL of Omnipaque 350 intravenous contrast without immediate adverse reactions. DOSE LOWERING TECHNIQUES: This CT examination was performed using dose optimization techniques as appropriate, variously including the following: - Automated exposure control - Adjustment of mA and/or kV according to patient size (this includes techniques or standardized protocols for targeted exams where dose is matched to indication/reason for exam; i.e. extremities or head) - Use of iterative reconstruction technique DLP: 484 mGy-cm. FINDINGS: CHEST: LUNGS: Biapical pleural parenchymal scarring. Mild emphysema. Scattered calcified granulomas. Minor scarring in the middle lobe and lingula. Nonspecific 3 mm nodule in the left upper lobe series 5 image 199. MEDIASTINUM: The thoracic aorta is normal in caliber. Three-vessel coronary artery calcium. No enlarged mediastinal lymph nodes. There is mild concentric thickening of the distal esophagus and GE junction. PLEURA: There is no pleural effusion. No pleural mass or thickening. AXILLA: No lymphadenopathy. ABDOMEN AND PELVIS: LIVER, GALLBLADDER, AND BILIARY TREE: Nonspecific hypodensity measuring 8 mm in segment 7 series 3 image 21. On thin section imaging this measures 25 Hounsfield units which is nonspecific. The gallbladder is unremarkable with no evidence of radiopaque gallstones, gallbladder wall thickening, or obvious pericholecystic inflammatory changes. PANCREAS: No discrete mass or ductal dilatation. SPLEEN: Normal. ADRENAL GLANDS: No adrenal mass. KIDNEYS AND URETERS: Symmetric nephrograms. Simple cyst in the lower pole the left kidney. No follow-up imaging is recommended. No hydronephrosis. BLADDER: Unremarkable. GASTROINTESTINAL TRACT: Concentric thickening of the lower esophagus and gastroesophageal junction which may correlate with reported esophageal malignancy. The small bowel is normal in caliber. The appendix appears normal minimal colonic diverticulosis. ABDOMINAL WALL: No significant hernia is appreciated. LYMPH NODES: No lymphadenopathy by size criteria. VASCULAR: Aortoiliac atherosclerosis. No aneurysm. PELVIC VISCERA: Unremarkable. OSSEOUS STRUCTURES: Degenerative change in the spine. No suspicious lytic or blastic osseous lesions. CT/CT abdomen pelvis w IV con IMPRESSION: Concentric thickening of the lower esophagus and gastroesophageal junction consistent with reported esophageal malignancy. Nonspecific 3 mm pulmonary nodule in the left upper lobe. Follow as per oncologic protocol. Nonspecific 8 mm hypodensity in hepatic segment 7. Follow-up as per oncologic protocol.
[2023-04-24] MEDS: iohexoL 350 MG/ML 100 ML INFUS..BTL 85 ML IV (11:45)
[2023-04-24] MEDS: Barium Sulfate Oral (Vanilla) 450 ML ORAL.SUSP 900 ML PO (11:47)
== END 2023-04-24 09:23 | disposition home or self-care (01) ==
LOC: HO.CT 09:22
PROVIDERS: PCP Internal Medicine Medical Oncology; Visit Provider Internal Medicine Medical Oncology
DX: C15.9 Malignant neoplasm of esophagus, unspecified (principal); C16.0 Malignant neoplasm of cardia
CPT/HCPCS: 71260; 74177; Q9967

== ENCOUNTER 2023-11-07 15:03 | Outpatient (AMB) | payer OTHER, SELFPAY ==
--- NOTE | 2023-11-07 15:07 | A.OFFVIS_ITS ---
Intake Vital Signs 11/07/23 15:08 Height 6 ft Weight 154 lb BMI 20.9 BP 130/68 Blood Pressure Location Lt brachial Position Sitting Pulse 60 Intake Visit Reasons: f/up esophagectomy- per KM Intake Note: follow up PT feels Allergies penicillin G Allergy (Unknown, Verified 01/15/23 15:41) Unknown Medication List - Last Reconciled 11/07/23 by Carmina Farley NP apixaban (Eliquis) 5 mg PO BID aspirin (Adult Low Dose Aspirin) 81 mg PO DAILY atorvastatin 80 mg PO DAILY metoprolol succinate ER (Toprol XL) 50 mg PO DAILY HPI HPI Comments History of Present Illness Details 63-year-old male presents today for a fo llow-up. He recently had a esophaectomy on 09/24/23. He had atrial fibrillation during the post operative period and was started on amiodarone. He and his report he was having low heart rates down into the 40s. he was feel weak and dizzy. Dr Lucas had them hold the metoprolol and they stopped the amiodarone he has felt much better. [facility] Medical History Hyperlipemia Arthritis Surgical History (Updated 11/09/23 @ 08:03 by Carmina Farley NP) H/O esophagectomy H/O heart artery stent History of elbow surgery History of mandibular surgery History of cardiac cath Family History Father CAD (coronary artery disease) Mother HTN (hypertension) CAD (coronary artery disease) Social History Alcohol intake: current Alcohol intake frequency: a few times a week Alcohol type: beer Patient Tobacco Use Status: Former Tobacco user Quit Date: 2019 Years Smoked: 40+ Review of Systems Const Denies weakness ENT Denies dizziness Card Denies chest pain, Denies chest pain with activity, Denies syncope, Denies rapid heart rate, Denies pedal edema, Denies edema, Denies leg edema, Denies lightheadedness, Denies palpitations, Denies dyspnea, Denies dyspnea on exertion and Denies orthopnea Resp Denies cough, Denies dyspnea and Denies dyspnea on exertion GI Denies hematochezia and Denies change in stool character Musc Denies abnormal gait, Denies muscle cramps, Denies muscle weakness, Denies numbness, Denies radiating pain into limb and Denies tingling Neuro Denies abnormal gait, Denies dizziness, Denies syncope, Denies numbness, Denies tingling and Denies weakness Endo Denies palpitations Physical Exam Vital Signs: Last Vital Signs Pulse 60 11/07/23 15:08 BP 130/68 11/07/23 15:08 BMI result Body Mass Index 20.9 Const General: healthy appearing and no acute distress Orientation/consciousness: patient oriented x3 HEENT Head: Yes normal to inspection Eyes General: appearance normal, both eyes and all related structures Neck Neck: Yes normal visual inspection Chest Chest palpation & inspection: normal inspection of the chest Resp Effort & Inspection: normal respiratory effort Auscultation: clear to auscultation bilaterally Cardio Jugular venous distension: no JVD Palpation: normal PMI Rate: regular rate Rhythm: regular rhythm Heart sounds: S1 normal heart sound present, S2 normal heart sound present, no click, no gallops, no murmurs and no rubs GI Inspection: Yes normal to inspection Palpation (GI): Soft to palpation Skin General skin exam: no rashes or lesions noted Neuro General: patient oriented x3 Extrem General: Yes normal to inspection Psych Appearance: grossly normal Assessment & Plan Assessment & Plan (1) PAF (paroxysmal atrial fibrillation): Code(s): I48.0 - Paroxysmal atrial fibrillation (2) H/O esophagectomy: Comment: with pyloroplasty and jejunostomy tube placement with Dr Garland. Code(s): Z98.890 - Other specified postprocedural states; Z90.49 - Acquired absence of other specified parts of digestive tract Plan During post-operative period from esophagectomy with Dr Garland patient went into atrial fibrillation. Once home his heart rate at home went into the 40s. Will get holter to assess rate and rhythm. Change positions slowly and ensure adequate hydration. Orders: Orders ECG 3 day holter monitor 11/07/23 I48.0 - Paroxysmal atrial fibrillation Coding Level of Care Code Est Pt Level 3 (11368) Diagnoses PAF (paroxysmal atrial fibrillation) I48.0 H/O esophagectomy Z98.890; Z90.49
[2023-11-07 15:08] VITALS: BP 130/68; PULSE 60; BMI 20.9
== END 2023-11-07 15:37 | disposition home or self-care (01) ==
PROVIDERS: PCP Internal Medicine Medical Oncology; Visit Provider Nurse Practitioner
DX: I48.0 Paroxysmal atrial fibrillation (principal); Z98.890 Other specified postprocedural states; Z90.49 Acquired absence of other specified parts of digestive tract
CPT/HCPCS: 99213

== ENCOUNTER → 2023-11-07 15:03 | Outpatient (BNVA) | payer OTHER, SELFPAY | PROVIDERS: PCP Internal Medicine Medical Oncology; Visit Provider Nurse Practitioner | DX: I48.0 Paroxysmal atrial fibrillation (principal); Z98.890 Other specified postprocedural states; Z90.49 Acquired absence of other specified parts of digestive tract ==

== ENCOUNTER → 2023-11-14 12:54 | Outpatient (REF) | payer OTHER, SELFPAY ==
--- NOTE | 2023-11-14 12:56 | HM_ITS ---
* Total monitoring time 3 days. * Underlying rhythm is sinus with an average ventricular rate of 69/Min. * Episodes of atrial fibrillation/flutter noted. [place] of 22%. Longest 4 hours 13 minutes. Fastest 180/Min. * Rare supraventricular and ventricular ectopy. * No significant pauses or AV blocks. * No patient markers or diary events. MTDD
== END ==
LOC: HO.CARD 12:54
PROVIDERS: PCP Internal Medicine Medical Oncology; Visit Provider Nurse Practitioner
DX: I48.0 Paroxysmal atrial fibrillation (principal)
CPT/HCPCS: 93242

== ENCOUNTER → 2023-11-14 12:56 | Outpatient (BNV) | payer OTHER, SELFPAY | PROVIDERS: PCP Internal Medicine Medical Oncology; Visit Provider Internal Medicine | DX: I48.91 Unspecified atrial fibrillation (principal) | CPT/HCPCS: 93244 ==

== ENCOUNTER 2024-08-25 15:28 | Outpatient (AMB) | payer OTHER, SELFPAY ==
[2024-08-25 15:35] VITALS: BP 100/60; PULSE 55
--- NOTE | 2024-08-25 15:35 | A.OFFVIS_ITS ---
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 Is here for routine follow-up and his EKG in the office showing atrial fibrillation. He is denying any palpitations, chest pain or shortness of breath. He is saying he did not feel any different from before. He was sent for echocardiography which did not show any cardiomyopathy. Returns for follow-up and continues to be asymptomatic. In wintertime he gets Raynaud's and blistering on his feet. Previously was on calcium channel mamadou. Today he returns for follow-up. His EKG in the office showing sinus bradycardi a. Previously he was in atrial fibrillation. He has been doing well. No chest pain or shortness of breath. He had a diagonal PCI when he presented with acute coronary syndrome and at that time he had indigestion like feeling. He has not had any indigestion like symptoms recently. Taking apixaban without any bleeding concerns. 08/25/2024: Here for follow-up after 1-1/2 year. He unfortunately got diagnosed with esophageal cancer toward the end of 2022 and underwent chemo and radiation and eventually esophagectomy. He has lost 30 lb. He he is saying that his scans are clear in does not have any residual disease as of now. He has to eat frequent meals. He has gained some weight. [facility] Medical History Hyperlipemia Arthritis Surgical History H/O esophagectomy H/O heart artery stent History of elbow surgery History of mandibular surgery History of cardiac cath Family History Father CAD (coronary artery disease) Mother HTN (hypertension) CAD (coronary artery disease) Social History (Updated 08/25/24 @ 15:37 by Macey Andrew CMA) Alcohol intake: current Alcohol intake frequency: a few times a week Alcohol type: beer Patient Tobacco Use Status: Never used Tobacco Years Smoked: 40+ Review of Systems Const Denies chills, Denies fatigue, Denies fever(s), Denies frequent falls, Denies weakness, Denies weight gain and Denies weight loss ENT Denies dizziness Card Denies chest pain, Denies leg edema, Denies lightheadedness, Denies palpitations, Denies dyspnea and Denies dyspnea on exertion Resp Denies cough, Denies dyspnea and Denies dyspnea on exertion GI Denies hematochezia Musc Denies abnormal gait, Denies muscle weakness, Denies numbness, Denies radiating pain into limb and Denies tingling Neuro Denies abnormal gait, Denies dizziness, Denies frequent falls, Denies numbness, Denies tingling and Denies weakness Endo Denies fatigue and Denies palpitations Physical Exam Vital Signs: Last Vital Signs Pulse 55 08/25/24 15:35 BP 100/60 08/25/24 15:35 BMI result Body Mass Index 20.0 GENERAL APPEARANCE: in no acute distress, pleasant. NECK: no carotid bruit, no jugular venous distention. SKIN: no suspicious lesions, warm and dry. HEART: no murmurs, regular rate and rhythm. LUNGS: clear to auscultation bilaterally. ABDOMEN: soft, nontender. EXTREMITIES: no edema. PERIPHERAL PULSES: equal. NEUROLOGIC: No gross deficits, AAO X 3 Office Procedures EKG Details: Sinus bradycardia 55 beats per minute, normal axis, nonspecific ST changes, QTC 390 milliseconds. [id number], Complete Assessment & Plan Assessment & Plan (1) Coronary artery disease: Code(s): I25.10 - Atherosclerotic heart disease of [place] coronary artery without angina pectoris Category: Medical (2) PAF (paroxysmal atrial fibrillation): Code(s): I48.0 - Paroxysmal atrial fibrillation Category: Medical Plan [age] year gentleman who is here for follow-up. He has known history of coronary artery disease and has stable angina. He was diagnosed with paroxysmal atrial fibrillation. He has been in sinus rhythm on his previous visits and continues to be in sinus rhythm on current visit. Continue Toprol-XL and Eliquis 5 mg twice a day. Continue atorvastatin 80 mg daily. Given stable angina I have advised him to stop the baby aspirin and continue Eliquis monotherapy. He will see us back in 1 year. Thank you for allowing me to participate in the care of your patient. Please feel free to contact me if you have any questions. Coding Level of Care Code Est Pt Level 4 (93182) Diagnoses Coronary artery disease I25.10 PAF (paroxysmal atrial fibrillation) I48.0 CPT Codes EKG - CPT: 89551-[id number], Complete ([id number])
--- OUTSIDE RECORDS SUMMARY | 2024-08-25 19:31 | XMS_ITS | Patient Health Record ---
Author Organization [facility] Address [address] [place] [address] Care Team Providers Care Stage Set Designer Name Role Phone Eleuterio Zuñiga MD Primary Care Provider Eleuterio Otto Unavailable [phone] ALLERGIES Allergen (clinical drug ingredient) Drug/Non Drug Allergy documented on EMR Reaction Allergy Type Onset Date Status Penicillin Unknown Drug Allergy Active REASON FOR REFERRAL No Information MEDICATIONS Medication SIG (Take, Route, Frequency, Duration) Notes Start Date End Date Status Metoprolol Succinate ER 50 MG TAKE 1 TABLET BY MOUTH EVERY DAY Oral for 90 Active amLODIPine Besylate 2.5 MG Oral for 90 Active Eliquis 5 MG TAKE 1 TABLET BY JAHAIRA TH TWICE A DAY Oral for 30 Active Atorvastatin Calcium 80 MG Oral for 90 Active Tadalafil 20 MG 1 tablet as needed O rally Once a day for 30 day(s) 03/29/2023 Active Aspir-Low 81 MG 1 tablet Orally Once a day for 30 day(s) 03/29/2023 Active Ferrous Sulfate 220 (44 Fe) MG/5ML as directed Orally 03/29/2023 Active Omeprazole 40 MG TAKE 1 CAPSULE BY [facility] EVERY DAY for 90 Active IMMUNIZATIONS Vaccine Route Administration Date Status Comme nts Influenza Unknown 06/20/2022 Administered SOCIAL HISTORY Tobacco Use: Social History Observation Description Date Details (start date - stop date) Former Smoker NA - NA Sex Assigned At : Social History Observation Description Sex Assigned At Unknown Tobacco Use/Smoking Question Answer Notes Patient is a former smoker Alcohol Screen Question Answer Notes Did you have a drink contain ing alcohol in the past year? Yes How often did you have a dri nk containing alcohol in the past year? 2 to 4 times a month (2 points) How many drinks did you have on a typical day when you were drinking in the past year? 1 or 2 drinks (0 point) How often did you have 6 or more drinks on one occasion in the past year? Never (0 point) Points 2 Interpretation Negative PROBLEMS Problem Type ICD Code Onset Dates Problem Status W/U Status Risk SNOMED Code Notes Problem Iron deficiency anemia, unspecified iron deficiency anemia type (D50.9) Active confirmed 44820691 Problem Esophageal dysphagia (R13.19) Active confirmed 70000215 Problem Epigastric pain (R10.13) Active confirmed 60264025 Problem Colon cancer screening (Z12.11) Active confirmed 392912641 Problem Diverticulosis of colon (K57.30) Active confirmed Diverticulosi s of colon (859235618) Problem Iron deficiency anemia (D50.9) Active confirmed Iron deficien cy anemia (63137729) Problem Dysphagia (R13.10) Active confirmed Dysphagia (62867748) PLAN OF TREATMENT Future Test Test Name Order Date UPPER GI ENDOSCOPY [place] DILATION OF ESOPH 03/29/2023 COLONOSCOPY 03/29/2023 Insurance Providers Payer Name Payer Address Payer Phone Subscriber Number Group Number Insured Name Patient Relationship to Insured Coverage Start Date Coverage End Date [facility] [address] [facility] [place] [phone] [id number] ISA LEACH Self - patient is the insured MEDICAL (GENERAL) HISTORY Medical History History ICD Code NE in 2005 with 2 stents HTN Afib-sees Dr. Lucas--had a neg. cath a pprox 2017 Hyperlipidemia Denies DM,CVA,Lung disease,renal disease Iron def. aneima Surgical History Surgery Date(Month/Year) Left elbow Broken jaw
--- OUTSIDE RECORDS SUMMARY | 2024-08-25 19:31 | XMS_ITS ---
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, Hypertension, Coronary artery disease, Hyperlipidemia, Paroxysmal atrial fibrillation, Benign prostatic hypertrophy Medications Medication SIG (Take, Route, Frequency, Duration) Notes Start Date End Date Status Atorvastatin Calcium 80 MG TAKE 1 TABLET BY MOUTH EVERY DAY Active Sulfamethoxazole-Trimethopr im 800-160 MG 1 tablet Oral Three times a Week Active Metoprolol Succinate ER 100 MG TAKE 1 TABLET BY MOUTH EVERY DAY Active Eliquis 5 MG 1 tablet Orally Twic e a day Active Aspirin Adult Low Dose 81 MG 1 tablet Orally Once a day Active Sucralfate 1 GM/10ML PLEASE SEE ATTACHED FOR DETAILED DIRECTIONS Oral Active predniSONE 20 MG TAKE 3 TABLETS BY [facility] DAILY FOR 30 DAYS. TAKE WITH FOOD OR MILK Oral Active Omeprazole 40 MG 1 capsule 30 minutes before morning meal Orally Once a day Active Triamcinolone Acetonide 0.5 % 1 application Externally Once a day 11/30/2023 Active Social History Tobacco Use: Social History Observation Description Date Details (start date - stop date) Former Smoker NA - NA Sex Assigned At : Social History Observation Description Sex Assigned At Male Tobacco Use/Smoking Question Answer Notes Patient is a former smoker How long has it been since you last smoked? 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 He is on prednisone, now in the drug is on hold. He has an upcoming appointment with Dr. Arce at . He will show the nodule under the feeding tube scar to his medical oncologist. He will be closely followed here. 08/12/2024 Essential hypertensi on (ICD-10 - I10) His blood pressure has been stable. He was given an appointment in the near future to return to the office to measure his vital signs. 08/12/2024 Mixed hyperlipidemia (ICD-10 - E78.2) His lipids has been within target values and no change in his regimen was necessary today. 08/12/2024 Eczema, unspecified type (ICD-10 - L30.9) His eczema is currently mild and well-controlled and no change in his regimen as needed. 08/12/2024 Former smoker (ICD-1 0 - Z87.891) He is highly motivated not to smoke. He has formulated a plan to prevent relapse in times of stress and illness. 08/12/2024 Coronary artery dise ase involving walker river coronary artery of walker river heart without angina pectoris (ICD-10 - I25.10) He has had no episodes of angina or diaphoresis since his last visit. Current therapy was continued. 08/12/2024 Underweight (ICD-10 - R63.6) He has lost 4 more pounds. We discussed diet and nutrition. I asked him to speak with medical oncology eval using an appetite stimulant as this is in their domain of treatment. 08/12/2024 Paroxysmal atrial fibrillation (ICD-10 - I48.0) He has been a persistent sinus rhythm since his last visit. He remains anticoagulated. Plan Of Treatment Medication Medication Name Sig Start Date Stop Date Notes Atorvastatin Calcium 80 MG TAKE 1 TABLET BY MOUTH EVERY DAY Sulfamethoxazole-Trimethopri m 800-160 MG 1 tablet Oral Three times a Week Metoprolol Succinate ER 100 MG TAKE 1 TA BLET BY MOUTH EVERY DAY Eliquis 5 MG 1 tablet Orally Twice a day Aspirin Adult Low Dose 81 MG 1 tablet Orally Once a day Sucralfate 1 GM/10ML PLEASE SEE ATTACHED FOR DETAILED DIRECTIONS Oral predniSONE 20 MG TAKE 3 TABLETS BY [facility] DAILY FOR 30 DAYS. TAKE WITH FOOD OR MILK Oral Omeprazole 40 MG 1 capsule 30 minutes before morning meal Orally Once a day Triamcinolone Acetonide 0.5 % 1 applicat ion Externally Once a day 11/30/2023 Next Appt Details Follow Up: As Scheduled, In six weeks, Reason: Annual Exam, Monitor liver function Provider Name:Eleuterio Zuñiga, 12/09/2024 03:00:00 PM, [address] [place] [address] [address] [place] [id number], [place], [id number], Progress Notes * Dino SIMS ADOB:[birth year] (63 yo M)Acc No.[id number]:08/12/2024 Progress Notes Patient:?CHYNADino Lacy Provider:?Eleuterio Zuñiga MD :1960???Age:63 Y???Sex:Male Herb e:08/12/2024 Address: [address], [id number] Subjective: * Chief Complaints: * ???Adenocarcinoma of the GE junctionRecent viral infectionAutoimmune hepatitis secondary to nuvolumabHypertensionCoronary artery diseaseHyperlipidemiaParoxysmal atrial fibrillationBenign prostatic hypertrophy * HPI: ???COVID-19 Screening:?Questions?Have you had any new onset fever, chills, cough, congestion, sore throat, shortness of breath, muscle aches??Yes patient stated he was sick last week. current symptoms are runny nose. ???:?The patient, a 63-year-old male, reported that he was currently weaning off Prednisone. He had been undergoing immunotherapy, but it had caused issues with his liver function, as indicated by blood tests. The patient was diagnosed with autoimmune hepatitis due to the nivolumab immunotherapy. He was also experiencing reflux, particularly at night, but denied any heart pain. He reported occasional difficulty falling back asleep after waking up early. The patient's weight was stable, and he had no trouble breathing or lying flat in bed at night. He had a slightly irregular heart rhythm, but it was well controlled. The patient also mentioned a scar from a feeding tube that seemed to be getting bigger. * ROS:?General/Constitutional:?Denies?pain,?only normal aches and pains.?Chills?denies.?Fatigue?admits.?Fever?denies.?ENT:?Decreased hearing?mild.?Respiratory:?Cough?denies.?Cardiovascular:?Chest pain with exertion?denies.?Dyspnea on exertion?denies.?Shortness of breath?with exertion.?Gastrointestinal:?Constipation?occasional.?Decreased appetite?that is not associated with weight loss.?Diarrhea?denies.?Heartburn?denies.?Nausea?denies.?Rectal bleeding?denies.?Vomiting?denies.?Hematology:?bruising?denies.?petechiae?denies.?Swollen glands?none have been noted.?Genitourinary:?Frequent urination?once a night.?Musculoskeletal:?Muscle aches?denies.?Painful joints?denies.?Sciatica?denies.?Weakness?that is generalized.?Skin:?Itching?denies.?Rash?denies.?Skin lesion(s)?denies.?Neurologic:?Difficulty speaking?denies.?Dizziness?denies.?Headache?denies.?Low back pain?denies.?Psychiatric:?Depressed mood?which is mild.? * Medical History:? * Surgical History:?coronary a ngioplasty x2 s/p IN 06/2005surgery on elbow surgery on mandible colonoscopy at [facility] age 48 2009Esophagectomy 4Abdominal surgery No history * Hospitalization/Major Diagno stic Procedure:?cardiac cath Hospitalized in september No history * Family History:?Father: dece ased 47 yrs, Myocardial infarction, diagnosed with CVD.?Mother: alive 93 yrs, Peripheral arterial disease with a carotid stent, history of myocardial infarction, coronary artery disease, diabetes, hypertension, diagnosed with DM, HTN.?Children: alive.?Siblings: , diagnosed with CVD.?Paternal uncle: , diagnosed with CVD.?2 brother(s) , 2 sister(s) - healthy. 2 son(s) , 1 daughter(s) - healthy. .? One of his brothers at the age of 61 of lung cancer. The surviving brother has a history of coronary artery disease and myocardial infarction. His father's brother of a myocardial infarction. His children are alive and well. He has 5 healthy grandchildren. He is not aware of any family history of mental illness or substance use disorder or addictions. 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 He plans to return at the age of 60. He works 40 hours a week. He has been to Lori for 38 years. They have 2 sons and one daughter and 5 grandchildren, all of whom are healthy. 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 Patient enjoys playing golf and drinking beer in moderation. * Medications:?TakingAtorvasta tin Calcium 80 MG Tablet TAKE 1 TABLET BY MOUTH EVERY DAY Eliquis 5 MG Tablet 1 tablet Orally Twice a day Aspirin Adult Low Dose 81 MG Tablet Delayed Release 1 tablet Orally Once a day Metoprolol Succinate ER 100 MG Tablet Extended Release 24 Hour TAKE 1 TABLET BY MOUTH EVERY DAY Triamcinolone Acetonide 0.5 % Cream 1 application Externally Once a day Omeprazole 40 MG Capsule Delayed Release 1 capsule 30 minutes before morning meal Orally Once a day predniSONE 20 MG Tablet TAKE 3 TABLETS BY MOUTH DAILY FOR 30 DAYS. TAKE WITH FOOD OR MILK Oral Sulfamethoxazole-Trimethoprim 800-160 MG Tablet 1 tablet Oral Three times a Week Taking Atorvastatin Calcium 80 MG Tablet TAKE 1 TABLET BY MOUTH EVERY DAY Taking Eliquis 5 MG Tablet 1 tablet Orally Twice a day Taking Aspirin Adult Low Dose 81 MG Tablet Delayed Release 1 tablet Orally Once a day Taking Metoprolol Succinate ER 100 MG Tablet Extended Release 24 Hour TAKE 1 TABLET BY MOUTH EVERY DAY Taking Triamcinolone Acetonide 0.5 % Cream 1 application Externally Once a day Taking Omeprazole 40 MG Capsule Delayed Release 1 capsule 30 minutes before morning meal Orally Once a day Taking predniSONE 20 MG Tablet TAKE 3 TABLETS BY MOUTH DAILY FOR 30 DAYS. TAKE WITH FOOD OR MILK Oral Taking Sulfamethoxazole-Trimethoprim 800-160 MG Tablet 1 tablet Oral Three times a Week DiscontinuedSucralfate 1 GM/10ML Suspension PLEASE SEE ATTACHED FOR DETAILED DIRECTIONS Oral Medication List reviewed and reconciled with the patientDiscontinued Sucralfate 1 GM/10ML Suspension PLEASE SEE ATTACHED FOR DETAILED DIRECTIONS Oral Medication List reviewed and reconciled with the patient * Allergies:?Emile kauffman[Allergies Verified] Objective: * Vitals:?Ht: 72, Wt:146, BMI: 19.8, BP:135/78, HR:92, Temp:97.4, Ht-cm: 182.88, Wt-k.22. * Examination: ???General Examination: ?GENERAL APPEARANCE:?pleasant, well nourished, well developed, in no acute distress, calm and relaxed, underweight, man.?HEAD:?atraumatic, normocephalic.?EYES:?eomi, perrla, anicteric, conjugate.?EARS:?normal.?NOSE:?septum intact.?ORAL CAVITY:?normal, unremarkable.?NECK/THYROID:?no jugular venous distention, no carotid bruit, thyroid normal.?LYMPH NODES:?no enlarged lymph nodes,spleen normal.?SKIN:?no suspicious lesions, anicteric, Mild patches of eczema.?HEART:?no clicks, gallops, murmurs, or rubs, regular rhythm, S1, S2 normal, no s3, or vascular bruits.?LUNGS:?clear to auscultation .?BREASTS:??no masses palpable bilaterally.?ABDOMEN:?bowel sounds normal, no ascites, no organomegaly, no mass, 2 cm hard nodular area under scar from feeding tube site.?RECTAL EXAM:?not examined.?MUSCULOSKELETAL:?extremities unremarkable, no clubbing, cyanosis or edema.?PERIPHERAL PULSES:?normal.?NEUROLOGIC:?alert and oriented, cranial nerves 2-12 grossly intact, deep tendon reflexes 2+ symmetrical, motor strength normal upper and lower extremities, sensory exam intact.?PSYCH:?alert, oriented, Tired-appearing.? : ???{'Heart Checkup':'Slightly irregular heart rhythm, well controlled', 'Liver Checkup': 'Unremarkable', 'Weight Check': 'Stable', 'Blood Pressure Check': '135/78'}. ??? 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 He is on prednisone, now in the drug is on hold.? He has an upcoming appointment with Dr. Arce at .? ?He will show the nodule under the feeding tube scar to his medical oncologist.? He will be closely followed here.???2.?Essential hypertension - I10???Notes :His blood pressure has been stable. He was given an appointment in the near future to return to the office to measure his vital signs.???3.?Mixed hyperlipidemia - E78.2???Notes :His lipids has been within target values and no change in his regimen was necessary today.???4.?Eczema, unspecified type - L30.9???Notes :His eczema is currently mild and well-controlled and no change in his regimen as needed.???5.?Former smoker - Z87.891???Notes :He is highly motivated not to smoke. He has formulated a plan to prevent relapse in times of stress and illness.???6.?Coronary artery disease involving walker river coronary artery of walker river heart without angina pectoris - I25.10???Notes :He has had no episodes of angina or diaphoresis since his last visit. Current therapy was continued.???7.?Underweight - R63.6???Notes :He has lost 4 more pounds. We discussed diet and nutrition. I asked him to speak with medical oncology eval using an appetite stimulant as this is in their domain of treatment.???8.?Paroxysmal atrial fibrillation - I48.0???Notes :He has been a persistent sinus rhythm since his last visit. He remains anticoagulated.??? Plan: * Treatment: 2.?Others? Continue Atorvastatin Calcium Tablet, 80 MG, TAKE 1 TABLET BY MOUTH EVERY DAY;?Continue Eliquis Tablet, 5 MG, 1 tablet, Orally, Twice a day;?Continue Aspirin Adult Low Dose Tablet Delayed Release, 81 MG, 1 tablet, Orally, Once a day;?Continue Metoprolol Succinate ER Tablet Extended Release 24 Hour, 100 MG, TAKE 1 TABLET BY MOUTH EVERY DAY;?Continue Triamcinolone Acetonide Cream, 0.5 %, 1 application, Externally, Once a day.?? * Procedure Codes:? * Preventive Medicine:? ??Counseling:?Care goal follow-up plan:?Counseling for abnormal BMI given?Yes ?Below Normal BMI Follow-up?Feeding regime ?Smoking/Tobacco Use?Patient counseled on the dangers of tobacco use and urged to quit.?08/12/2024 * Follow Up:?As Scheduled, In six weeks (Reason: Annual Exam, Monitor liver function) * Images: * Sign off status: Completed true * Provider:?Eleuterio Zuñiga MD Date:?07/30 Generated for Carlos poole/Barbara/eTransmitting on:?08/25/2024 07:31 PM EST History and Physical Notes * HPI (History of Present Illness) Category Sub-Category Detail Notes COVID-19 Screening Questions Have you had any new onset fever, chills, cough, congestion, sore throat, shortness of breath, muscle aches?: Yes patient stated he was sick last week. current symptoms are runny nose. Examination Category Sub-Category Detail Notes General Examination GENERAL APPEARANCE: pleasant , well nourished, well developed, in no acute distress, calm and relaxed, underweight, man HEAD: atraumatic, normocep halic EYES: eomi, perrla, anicte nae, conjugate EARS: normal NOSE: septum intact NECK/THYROID: no jugular venous di stention, no carotid bruit, thyroid normal HEART: no clicks, gallops, murmurs, or rubs, regular rhythm, S1, S2 normal, no s3, or vascular bruits LUNGS: clear to auscultatio n ABDOMEN: bowel sounds normal, no ascites, no organomegaly, no mass, 2 cm hard nodular area under scar from feeding tube site NEUROLOGIC: alert and oriented, cranial nerves 2-12 grossly intact, deep tendon reflexes 2+ symmetrical, motor strength normal upper and lower extremities, sensory exam intact SKIN: no suspicious lesion s, anicteric, Mild patches of eczema PERIPHERAL PULSES: normal BREASTS: no masses palpable b ilaterally MUSCULOSKELETAL: extremities unremark able, no clubbing, cyanosis or edema LYMPH NODES: no enlarged lymph no renetta,spleen normal RECTAL EXAM: not examined PSYCH: alert, oriented, Tir ed-appearing ORAL CAVITY: normal, unremarkable
--- OUTSIDE RECORDS SUMMARY | 2024-08-25 19:31 | XMS_ITS ---
Author Organization [facility] Address [address] [place] [address] Care Team Providers Care Church Organist Name Role Phone Eleuterio Zuñiga MD Primary Care Provider Unavailab Eleuterio Wilhelm Unavailable [phone] REASON FOR VISIT NEW U[place]ET PAULA, EPIGASTRIC PAIN Encounters Encounter Location Date Provider Diagnosis [facility] [address] [place] [address] 08/07/2023 Eleuterio Pineda PLAN OF TREATMENT No Information
--- OUTSIDE RECORDS SUMMARY | 2024-08-25 19:31 | XMS_ITS ---
Author Organization [facility] Address [address] [place] [address] Care Team Providers Care Eyeglass Inspector Name Role Phone Zara LUA, Eleuterio Primary Care Provider Unavailab Eleuterio Wilhelm Unavailable [phone] MEDICATIONS Medication SIG (Take, Route, Fr equency, Duration) Notes Start Date End Date Status Omeprazole 40 MG 1 Orally Once a day for 30 day(s) 04/12/2023 Active Encounters Encounter Location Date Provider Diagnosis [facility] [address] [place] [address] 04/12/2023 Eleuterio Pineda PLAN OF TREATMENT Medication Medication Name Sig Start Date Stop Date Notes Omeprazole 40 MG 1 Orally Once a day for 30 day(s) 023
--- OUTSIDE RECORDS SUMMARY | 2024-08-25 19:31 | XMS_ITS | Continuity of Care Document ---
Author Organization [facility] Address [address] [place] [address]- Care Team Providers Care Test Grader Name Role Phone Eleuterio Zuñiga MD Primary Care Physician [phone] Encounter [facility] [id number] Date(s): 07/04/24 - 08/03/[address] [address] Encounter Type: Triage Allergies, Adverse Reactions, Alerts Substance Criticality Severity Reaction Reaction Severity Status penicillin unknown Active Bee Stings swelling Active Immunizations Given and Recorded Vaccine Date Status Refusal Reason pneumococcal 15-valent conjugate vaccine 06/25/23 Given influenza virus vaccine, inactivated 06/25/23 Give n Medications aspirin 81 mg oral enteric coated tablet 81 mg, 1, tablet, By Mouth, Daily before lunch, 0 Refills Start Date: 11/27/05 Status: Ordered Repeat number: 1 Carafate 1 gm/10 ml oral suspension 10 mL = 1 Gm, By Mouth, 3 times a day before meals and bedtime, on an empty stomach avoid antacids for 30 minutes, space from other medications, # 1,200 mL, 1 Refills, Maintenance, 05/08/24 3:08:00 PM EDT, [id number], Partial fill upon patient request if the prescription is for a schedule II opioid drug., 182, cm, 05/08/24 10:30:00 EDT, Height, 66, kg, 05/08/24 10:30:00 EDT, Dry Weight Start Date: 05/08/24 Status: Ordered Quantity: 1200.0 Unit: mL Repeat number: 2 Docusate as needed, 0 Refills, Maintenance, 10/15/23 11:12:00 AM EDT, Partial fill upon patient request if the prescription is for a schedule II opioid drug. Start Date: 10/15/23 Status: Ordered Repeat number: 1 Eliquis 5 mg oral tablet 1 tablet = 5 mg, By Mouth, 2 times a day, 0 Refills, Maintenance, 05/30/23 9:20:00 AM EDT, Partial fill upon patient request if the prescription is for a schedule II opioid drug. Start Date: 05/30/23 Status: Ordered Repeat number: 1 famotidine 20 mg oral tablet 20 mg, 1, tablet, By Mouth, 2 times a day, # 180 tablet, Refills 6, Tot. Refills 6, Maintenance, 10/15/23 11:50:00 AM EDT, Route to Pharmacy Electronically, [facility] #[id number], Partial fill upon patient request if the prescription is for a schedule II opioid drug., 180, cm, 10/15/23 11:07:00 EDT, Height, 74.3, kg, 09/24/23 21:20:00 EST, Dry Weight Start Date: 10/15/23 Status: Ordered Quantity: 180.0 Unit: tablet Repeat number: 7 Lipitor 80 mg oral tablet 80 mg, 1, tablet, By Mouth, Daily, # 90 tablet, 3 Refills Start Date: 08/21/06 Stop Date: 11/19/06 Status: Ordered Quantity: 90.0 Unit: tablet Repeat number: 4 metoprolol 50 mg oral tablet 50 mg, 1, tablet, By Mouth, Daily before lunch, Refills 0, Maintenance, 07/06/23 2:27:00 PM EST, Partial fill upon patient request if the prescription is for a schedule II opioid drug. Start Date: 07/06/23 Status: Ordered Repeat number: 1 Nutritional Supplements See Instructions, # 90 Unknown, Maintenance, Take 3 Ensure high protein shakes daily., 08/15/23 10:38:00 AM EST, Supply, 180, cm, 08/14/23 18:59:00 EST, Height, 67.5, kg, 08/06/23 15:44:00 EST, Dry Weight Start Date: 08/15/23 Status: Ordered Quantity: 90.0 Unit: Unknown Repeat number: 1 oxyCODONE 5 mg oral tablet 5 mg, 1, tablet, By Mouth, Every 8 hours, PRN, # 30 tablet, Refills 0, Tot. Refills 0, Maintenance,for pain, 07/04/24 12:43:00 PM EST, [id number] Partial fill upon patient request if the prescription is for a schedule II opioid drug., 182, cm, 07/04/24 9:04:00 EST, Height, 66.5, kg, 07/04/24 9:04:00 EST, Dry Weight Start Date: 07/04/24 Status: Ordered Quantity: 30.0 Unit: tablet Repeat number: 1 oxyCODONE 5 mg oral tablet 5 mg, 1, tablet, By Mouth, Every 4 hours, PRN, # 42 tablet, Refills 0, Tot. Refills 0, Maintenance,for pain, 10/04/23 2:05:00 PM EST, Route to Pharmacy Electronically, [facility], Partial fill upon patient request if the prescription is for a schedule II opioid drug., 180, cm, 09/24/2420:20:00 EST, Height, 74.3, kg, 09/24/23 21:20:00 EST, Dry Weight Start Date: 10/04/23 Stop Date: 10/11/23 Status: Ordered Quantity: 42.0 Unit: tablet Repeat number: 1 pantoprazole 20 mg oral delayed release tablet 1 tablet = 20 mg, By Mouth, Daily, 30 minutes before breakfast, # 30 tablet, 11 Refills, Maintenance, 05/20/24 4:34:00 PM EDT, CR Tablet, 182, cm, 05/20/24 15:55:00 EDT, Height, 66, kg, 05/08/24 10:30:00 EDT, Dry Weight Start Date: 05/20/24 Status: Ordered Quantity: 30.0 Unit: tablet Repeat number: 12 Indication: Epigastric pain predniSONE 20 mg oral tablet 2 tablet = 40 mg, By Mouth, Daily, for 30 days, with food or milk, # 60 tablet, 0 Refills, Acute 08/20/24 2:30:00 PM EST, 07/21/24 2:30:00 PM EST, Tablet, [facility]/pharmacy #[id number], Partial fill upon patientrequest if the prescription is for a schedule II opioid drug., 182, cm, 07/04/24 9:04:00 EST, Height, 66.5, kg, 07/04/24 9:04:00 EST, Dry Weight Start Date: 07/21/24 Stop Date: 08/20/24 Status: Ordered Quantity: 60.0 Unit: tablet Repeat number: 1 Redi Cat 2- pre mixed 450 ml Redi Cat 2- pre mixed 450 ml, See Instructions, # 900 mL, Refills 0, Tot. Refills 0, Maintenance, as instructed for CT scan, 07/04/24 10:51:00 AM EST, Compound, 182, cm, 07/04/24 9:04:00 EST, Height, 66.5, kg, 07/04/24 9:04:00 EST, Dry Weight Start Date: 07/04/24 Status: Ordered Quantity: 900.0 Unit: mL Repeat number: 1 sulfamethoxazole-trimethoprim 800 mg-160 mg oral tablet See Instructions, 1 tablet po three times a week (Sun-Sun-Sun) drink plenty of fluids, # 30 tablet,0 Refills, Maintenance, 07/31/24 3:39:00 PM EST, [facility]/pharmacy #[id number], Partial fill upon patient request if the prescription is for a schedule II opioid drug., 1 tablet po three times a week (Sun-); drink plenty of fluids, 182, cm, 07/31/24 14:54:00 EST, Height, 66.9, kg, 07/31/24 14:54:00 EST, Dry Weight Start Date: 07/31/24 Status: Ordered Quantity: 30.0 Unit: tablet Repeat number: 1 Problem List Condition Confirmation Course Effective Dates Status H ealth Status Informant Atrial fibrillation Confirmed Active Esophageal dysphagia Confirmed Active Former smoker Confirmed Active Hx of esophagectomy Confirmed Active History of coronary angioplasty with insertion of stent Confirmed Active Hyperlipemia Confirmed Active Hypertension Confirmed Active Myocardial infarct Confirmed Active Non-cardiac chest pain Confirmed Active Osteoarthritis Confirmed Active Primary adenocarcinoma of gastroesophageal junction Confirmed Active Tubular adenoma of colon Confirmed Active Social History Social History Type Response Smoking Status Former smoker, quit more than 30 days ago entered on: 05/20/24 Sex Sex Representation Male (finding) Patient Care team information Care Team Personnel Name: Eleuterio Zuñiga MD Position: [facility] Physician - Oncology Member Role: PCP Address: [address] [facility] [address] Eleuterio Zuñiga III, [place] [address]- Telecom: Name: Nano Pacheco RN Position: [facility] RN Member Role: Primary Care Nurse Name: Manuela Almonte RN Position: [facility] RN Member Role: Primary Care Nurse Name: Dalia Vargas RN Position: S RN Member Role: Primary Care Nurse Name: Collin Palacios DO Position: [facility] Renal MD Member Role: Lifetime Consulting Physician Address: [address] [place] [address] [address] [facility] [place] [address]- Telecom: Name: Nandini Maier RN Position: [facility] RN Member Role: Primary Care Nurse Name: Jeevan Tsai RN Position: [facility] Onco RN Member Role: Primary Care Nurse Name: Paz Camarillo RN Position: [facility] Onco RN Member Role: Primary Care Nurse Name: Isael Gonzalez RN Position: [facility] RN Member Role: Primary Care Nurse Name: Radha Mahmood RN Position: [facility] RN Member Role: Primary Care Nurse Name: Isi Espinoza RN Position: [facility] RN Member Role: Primary Care Nurse Name: Sugey Antonio RN Position: [facility] RN Member Role: Primary Care Nurse Name: Estuardo Atkins RN Position: [facility] RN Member Role: Primary Care Nurse Name: Janine Dowling RN Position: [facility] RN Member Role: Primary Care Nurse Care Team Related Persons Name: VLADISLAV CLEMENTE Insurance Providers Guarantor name: [facility] Plan Information #: 1 Payer: [employer] [facility] PPO Member Number: NA Policy Number: NA Group Number: [id number]
--- OUTSIDE RECORDS SUMMARY | 2024-08-25 19:31 | XMS_ITS | Clinical Summary ---
Author Organization [facility] Address [address] [address] Care Team Providers Care Chef Concierge Name Role Phone Eleuterio Zuñiga MD Primary Care Provider [phone] Allergies Active Allergy Reactions Criticality Noted Date Comments Penicillins 01/14/2021 Medications sulfamethoxazole -trimethoprim (BACTRIM DS,SEPTRA DS) 800-160 MG per tablet 01/12/2021 Active phenazopyridine (PYRIDIUM) 200 MG tablet 01/12/2021 Active metoprolol succinate XL (TOPROL-XL) 100 MG 24 hr tablet Take 100 mg by mouth 1 (one) time each day 10/24/2020 Active atorvastatin (LIPITOR) 80 MG tablet 12/17/2020 Active Active Problems Problem Noted Date Diagnosed Date Hypertension 01/14/2021 Edema of lower extremity 01/14/2021 Hyperlipidemia 01/14/2021 Coronary arteriosclerosis 01/14/2021 Family History Medical History Relation Comments Cancer Brother Coronary artery disease Mother Diabetes Mother Hypertension Mother Relation Status Comments Brother Mother Social History Tobacco Use Types Packs/Day Years Used Date Smoking Tobacco: Former Sex and Gender Information Value Date Recorded Sex Assigned at Not on file Legal Sex Male 3:52 PM EDT Gender Identity Not on file Sexual Orientation Not on file Plan of Treatment Health Maintenance Due Date Last Done Comments Colorectal Cancer Screening: Annual FOBT 2007 Colorectal Cancer Screening: Colonoscopy 2007 Colorectal Cancer Screening: Sigmoidoscopy 2007 Pneumococcal Vaccine: 65+ Ye ars (1 of 1 - PCV) 2023 Influenza Vaccine (#1) 2024 Hepatitis B Vaccine Aged Out No longe r eligible based on patient's age to complete this topic Pneumococcal Vaccine: Pediat rics (0 to 5 Years) and At-Risk Patients (6 to 64 Years) Aged Out No longer eligible b ased on patient's age to complete this topic Insurance [facility] Care Teams Chef Concierge Relationship Specialty Start Date End Date Eleuterio Zuñiga MD [address] [place] [address] [id number] JAVIER FRANKS PCP - General Medical Oncology 01/13/21
--- OUTSIDE RECORDS SUMMARY | 2024-08-25 19:31 | XMS_ITS | Patient Health Record ---
Author Organization Eleuterio Zuñiga III, MD Address [address] [place] [address] DR [place]a [place] [id number] Care Team Providers Care Lifter Driver Name Role Phone Eleuterio Zuñiga Primary Care Provider Allergies Allergen (clinical drug ingredient) Drug/Non Drug Allergy documented on EMR Reaction Allergy Type Onset Date Status Penicillin Unknown Drug Allergy Active Bee Sting Unknown Allergy Active Results Component Value Reference Range Notes URINE DIP STICK Reviewed date:11/30/2023 04:09:34 PM Interpretation: Performing Lab: Notes/Report: SG 1.030 1.005 - 1.025 pH 5.0 5.0 - 9.0 NESTOR Negative Negative - NIT Negative Negative - PRO 30 Negative - Trace GLU Negative Negative - KET Negative Negative - UBG 0.2 0.1 - 1.8 ABI Negative 0.2 - 1.3 BLD Negative Negative - Reason For Referral No Information Medications Medication SIG (Take, Route, Frequency, Duration) Notes Start Date End Date Status Atorvastatin Calcium 80 MG TAKE 1 TABLET BY MOUTH EVERY DAY Active Sucralfate 1 GM/10ML PLEASE SEE ATTACHED FOR DETAILED DIRECTIONS Oral Active predniSONE 20 MG TAKE 3 TABLETS BY [facility] DAILY FOR 30 DAYS. TAKE WITH FOOD OR MILK Oral Active Sulfamethoxazole-Trimethopr im 800-160 MG 1 tablet Oral Three times a Week Active Omeprazole 40 MG 1 capsule 30 minutes before morning meal Orally Once a day Active Metoprolol Succinate ER 100 MG TAKE 1 TABLET BY MOUTH EVERY DAY Active Triamcinolone Acetonide 0.5 % 1 application Externally Once a day 11/30/2023 Active Eliquis 5 MG 1 tablet Orally Twic e a day Active Aspirin Adult Low Dose 81 MG 1 tablet Orally Once a day Active Immunizations Vaccine Route Administration Date Status Comme nts Influenza no Preserv 3 and > Unknown 06/02/2019 Administered COVID- 19 Vaccine Unknown 11/01/2020 Administered Influenza, quad IM Intramuscular 06/06/2022 Administered Social History Tobacco Use: Social History Observation Description Date Details (start date - stop date) Former Smoker NA - NA Sex Assigned At : Social History Observation Description Sex Assigned At Male Tobacco Use/Smoking Question Answer Notes Patient is a former smoker How long has it been since you last smoked? > 10 years Additional Findings: Tobacco Non-User Ex-cigaret te smoker Alcohol Screen Question Answer Notes Did you have a drink containing alcohol in the p ast year? No Points 0 Interpretation Negative Problems Problem Type SNOMED Code ICD Code Onset Dates Problem Status W/U Status Risk Notes Problem 7087408 Former smoker (Z87.891) Active confirmed He is highly motivated not to smoke. He has formulated a plan to prevent relapse in times of stress and illness. Problem 738944039 Underweight (R63.6) Active confirmed He has lost 4 more pounds. We discussed diet and nutrition. I asked him to speak with medical oncology eval using an appetite stimulant as this is in their domain of treatment. Problem 227897983 Mixed hyperlipidemia (E78.2) Active confirmed His lipids has been within target values and no change in his regimen was necessary today. Problem 597302910 Paroxysmal atria l fibrillation (I48.0) Active confirmed He has been a persistent sinus rhythm since his last visit. He remains anticoagulate d. Problem 17414633 Essential hypertension (I10) Active confirmed His blood pressure has been stable. He was given an appointment in the near future to return to the office to measure his vital signs. Problem 90933804 Penicillin aller gy (Z88.0) Active confirmed Problem Osteoarthritis (843578086) Osteoarthritis, unspecified osteoarthritis type, unspecified site (M19.90) Active confirmed He has mild to moderate arthritic symptoms in his shoulders. They do not affect his ability to conduct all of the activities of daily life. But he finds them annoying and he wants to have another injection so this was arranged. Problem 22549597 Iron deficiency anemia, unspecified iron deficiency anemia type (D50.9) Active confirmed Evaluation of the source of bleeding has begun. He is responding to his iron replacement very well. Problem 2872020407920 Coronary artery disease involving [place] coronary artery of [place] heart without angina pectoris (I25.10) Active confirmed He has had no episodes of angina or diaphoresis since his last visit. Current therapy was continued. 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 He is on prednisone, now in the drug is on hold. He has an upcoming appointment with Dr. Arce at [facility]. He will show the nodule under the feeding tube scar to his medical oncologist. He will be closely followed here. Problem 05884380 Eczema, unspecified type (L30.9) Active confirmed His eczema is currently mild and well-controll ed and no change in his regimen as needed. Problem 122234064 Benign prostatic hyperplasia, unspecified whether lower urinary tract symptoms present (N40.0) Active confirmed He says he arises from sleep on the average of once a night to urinate. We have discussed lifestyle modification as a way to control nocturia. Problem 642877282 Vasculogenic erectile dysfunction, unspecified vasculogenic erectile dysfunction type (N52.9) Active confirmed Medication has been prescribed for this problem which has been effective. Problem 533759274 Raynaud's diseas e without gangrene (I73.00) Active confirmed No evidence of this has been present for a prolonged period of time Vital Signs Heart Rate 92 /min 08/12/2024 Temperature 97.4 degrees Fahrenheit 08/12/2024 Blood pressure diastolic 78 mm Hg 08/12/2024 Height 72 in 08/12/2024 Blood pressure systolic 135 mm Hg 08/12/2024 Weight 146 lbs 08/12/2024 BMI 19.8 kg/m2 08/12/2024 Encounters Encounter Location Date Provider Diagnosis Eleuterio Zuñiga III, MD [address] [place] [address] [place] [phone] 09/19/2023 Eleuterio Zuñiga Adenocarcinoma of gastroesophageal junction C16.0 ; Essential hypertension I10 ; Mixed hyperlipidemia E78.2 ; Eczema, unspecified type L30.9 ; Osteoarthritis, unspecified osteoarthritis type, unspecified site M19.90 ; Benign prostatic hyperplasia, unspecified whether lower urinary tract symptoms present N40.0 ; Raynaud's disease without gangrene I73.00 ; Iron deficiency anemia, unspecified iron deficiency anemia type D50.9 and Paroxysmal atrial fibrillation I48.0 Eleuterio Zuñiga III, MD [address] [place] [address] [place] [phone] 11/30/2023 Eleuterio Zuñiga Adenocarcinoma of gastroesophageal junction C16.0 ; Paroxysmal atrial fibrillation I48.0 ; Iron deficiency anemia, unspecified iron deficiency anemia type D50.9 ; Benign prostatic hyperplasia, unspecified whether lower urinary tract symptoms present N40.0 ; Former smoker Z87.891 ; Vasculogenic erectile dysfunction, unspecified vasculogenic erectile dysfunction type N52.9 and Coronary artery disease involving [place] coronary artery of [place] heart without angina pectoris I25.10 Eleuterio Zuñiga III, MD [address] [place] [address] [place] [phone] 01/29/2024 Eleuterio Zuñiga Adenocarcinoma of gastroesophageal junction C16.0 ; Paroxysmal atrial fibrillation I48.0 ; Iron deficiency anemia, unspecified iron deficiency anemia type D50.9 ; Benign prostatic hyperplasia, unspecified whether lower urinary tract symptoms present N40.0 ; Coronary artery disease involving [place] coronary artery of [place] heart without angina pectoris I25.10 ; Former smoker Z87.891 ; Eczema, unspecified type L30.9 and Essential hypertension I10 Eleuterio Zuñiga III, MD [address] [place] [address] [place] [id number] 03/17/2024 Eleuterio Zuñiga Adenocarcinoma of gastroesophageal junction C16.0 ; Eczema, unspecified type L30.9 ; Essential hypertension I10 ; Osteoarthritis, unspecified osteoarthritis type, unspecified site M19.90 ; Former smoker Z87.891 and Coronary artery disease involving [place] coronary artery of [place] heart without angina pectoris I25.10 Eleuterio Zuñiga III, MD [address] [place] [address] [place] [phone] 05/19/2024 Eleuterio Zuñiga Adenocarcinoma of gastroesophageal junction C16.0 ; Coronary artery disease involving [place] coronary artery of [place] heart without angina pectoris I25.10 ; Essential hypertension I10 ; Mixed hyperlipidemia E78.2 ; Former smoker Z87.891 ; Paroxysmal atrial fibrillation I48.0 and Underweight R63.6 Eleuterio Zuñiga III, MD [address] [place] [address] [place] [address] 08/12/2024 Eleuterio Zuñiga Adenocarcinoma of gastroesophageal junction C16.0 ; Essential hypertension I10 ; Mixed hyperlipidemia E78.2 ; Eczema, unspecified type L30.9 ; Former smoker Z87.891 ; Coronary artery disease involving [place] coronary artery of [place] heart without angina pectoris I25.10 ; Underweight R63.6 and Paroxysmal atrial fibrillation I48.0 Assessments Encounter Date Diagnosis (ICD Code) Assessment Notes Treat ment Notes Treatment Clinical Notes 09/19/2023 Essential hypertensi on (ICD-10 - I10) His blood pressure has been stable. He was given an appointment in the near future to return to the office to measure his vital signs. 09/19/2023 Adenocarcinoma of gastroesophageal junction (ICD-10 - C16.0) He has completed his radiation and chemotherapy. I decision will soon need to be made about whether to operate on him are not. He is aware of this. He is able to consume food and fluids that without much pain. He will be seen regularly. 11/30/2023 Paroxysmal atrial fibrillation (ICD-10 - I48.0) He has been a persistent sinus rhythm since his last visit. He remains anticoagulated. 11/30/2023 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 I recommended strongly that he consider the additional treatment recommended by medical oncology. 01/29/2024 Paroxysmal atrial fibrillation (ICD-10 - I48.0) He has been a persistent sinus rhythm since his last visit. He remains anticoagulated. 01/29/2024 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 I recommended strongly that he consider the additional treatment recommended by medical oncology. He continues to consider whether or not to accept the immunotherapy. There was arecurrentdiseaset shauna. 03/17/2024 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 I recommended strongly that he consider the additional treatment recommended by medical oncology. He has decided to proceed with the additional treatment. 03/17/2024 Eczema, unspecified type (ICD-10 - L30.9) His eczema is currently mild and well-controlled and no change in his regimen as needed. 05/19/2024 Coronary artery disease involving [place] coronary artery of [place] heart without angina pectoris (ICD-10 - I25.10) He has had no episodes of angina or diaphoresis since his last visit. Current therapy was continued. 05/19/2024 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 I recommended strongly that he consider the additional treatment recommended by medical oncology. He has areed to 12 months of nuvolumab infusions. 08/12/2024 Essential hypertensi on (ICD-10 - I10) His blood pressure has been stable. He was given an appointment in the near future to return to the office to measure his vital signs. 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 He is on prednisone, now in the drug is on hold. He has an upcoming appointment with Dr. Arce at [facility]. He will show the nodule under the feeding tube scar to his medical oncologist. He will be closely followed here. 09/19/2023 Mixed hyperlipidemia (ICD-10 - E78.2) His lipids has been within target values and no change in his regimen was necessary today. 11/30/2023 Iron deficiency anemia, unspecified iron deficiency anemia type (ICD-10 - D50.9) Evaluation of the source of bleeding has begun. He is responding to his iron replacement very well. 01/29/2024 Iron deficiency anemia, unspecified iron deficiency anemia type (ICD-10 - D50.9) Evaluation of the source of bleeding has begun. He is responding to his iron replacement very well. 03/17/2024 Essential hypertensi on (ICD-10 - I10) His blood pressure has been stable. He was given an appointment in the near future to return to the office to measure his vital signs. 05/19/2024 Essential hypertensi on (ICD-10 - I10) His blood pressure has been stable. He was given an appointment in the near future to return to the office to measure his vital signs. 08/12/2024 Mixed hyperlipidemia (ICD-10 - E78.2) His lipids has been within target values and no change in his regimen was necessary today. 09/19/2023 Eczema, unspecified type (ICD-10 - L30.9) His eczema is currently mild and well-controlled and no change in his regimen as needed. 11/30/2023 Benign prostatic hyperplasia, unspecified whether lower urinary tract symptoms present (ICD-10 - N40.0) He says he arises from sleep on the average of once a night to urinate. We have discussed lifestyle modification as a way to control nocturia. 01/29/2024 Benign prostatic hyperplasia, unspecified whether lower urinary tract symptoms present (ICD-10 - N40.0) He says he arises from sleep on the average of once a night to urinate. We have discussed lifestyle modification as a way to control nocturia. 03/17/2024 Osteoarthritis, unspecified osteoarthritis type, unspecified site (ICD-10 - M19.90) He has mild to moderate arthritic symptoms in his shoulders. They do not affect his ability to conduct all of the activities of daily life. But he finds them annoying and he wants to have another injection so this was arranged. 05/19/2024 Mixed hyperlipidemia (ICD-10 - E78.2) His lipids has been within target values and no change in his regimen was necessary today. 08/12/2024 Eczema, unspecified type (ICD-10 - L30.9) His eczema is currently mild and well-controlled and no change in his regimen as needed. 09/19/2023 Osteoarthritis, unspecified osteoarthritis type, unspecified site (ICD-10 - M19.90) He has mild to moderate arthritic symptoms in his shoulders. They do not affect his ability to conduct all of the activities of daily life. But he finds them annoying and he wants to have another injection so this was arranged. 11/30/2023 Former smoker (ICD-1 0 - Z87.891) He is highly motivated not to smoke. He has formulated a plan to prevent relapse in times of stress and illness. 01/29/2024 Coronary artery disease involving [place] coronary artery of [place] heart without angina pectoris (ICD-10 - I25.10) He has had no episodes of angina or diaphoresis since his last visit. Current therapy was continued. 03/17/2024 Former smoker (ICD-1 0 - Z87.891) He is highly motivated not to smoke. He has formulated a plan to prevent relapse in times of stress and illness. 05/19/2024 Former smoker (ICD-1 0 - Z87.891) He is highly motivated not to smoke. He has formulated a plan to prevent relapse in times of stress and illness. 08/12/2024 Former smoker (ICD-1 0 - Z87.891) He is highly motivated not to smoke. He has formulated a plan to prevent relapse in times of stress and illness. 09/19/2023 Benign prostatic hyperplasia, unspecified whether lower urinary tract symptoms present (ICD-10 - N40.0) He says he arises from sleep on the average of once a night to urinate. We have discussed lifestyle modification as a way to control nocturia. 11/30/2023 Vasculogenic erectil e dysfunction, unspecified vasculogenic erectile dysfunction type (ICD-10 - N52.9) Medication has been prescribed for this problem which has been effective. 01/29/2024 Former smoker (ICD-1 0 - Z87.891) He is highly motivated not to smoke. He has formulated a plan to prevent relapse in times of stress and illness. 03/17/2024 Coronary artery disease involving [place] coronary artery of [place] heart without angina pectoris (ICD-10 - I25.10) He has had no episodes of angina or diaphoresis since his last visit. Current therapy was continued. 05/19/2024 Paroxysmal atrial fibrillation (ICD-10 - I48.0) He has been a persistent sinus rhythm since his last visit. He remains anticoagulated. 08/12/2024 Coronary artery disease involving [place] coronary artery of [place] heart without angina pectoris (ICD-10 - I25.10) He has had no episodes of angina or diaphoresis since his last visit. Current therapy was continued. 09/19/2023 Raynaud's disease without gangrene (ICD-10 - I73.00) No evidence of this has been present for a prolonged period of time 11/30/2023 Coronary artery disease involving [place] coronary artery of [place] heart without angina pectoris (ICD-10 - I25.10) He has had no episodes of angina or diaphoresis since his last visit. Current therapy was continued. 01/29/2024 Eczema, unspecified type (ICD-10 - L30.9) His eczema is currently mild and well-controlled and no change in his regimen as needed. 05/19/2024 Underweight (ICD-10 - R63.6) He has lost 4 more pounds. We discussed diet and nutrition. I asked him to speak with medical oncology eval using an appetite stimulant as this is in their domain of treatment. 08/12/2024 Underweight (ICD-10 - R63.6) He has lost 4 more pounds. We discussed diet and nutrition. I asked him to speak with medical oncology eval using an appetite stimulant as this is in their domain of treatment. 09/19/2023 Iron deficiency anemia, unspecified iron deficiency anemia type (ICD-10 - D50.9) Evaluation of the source of bleeding has begun. He is responding to his iron replacement very well. 01/29/2024 Essential hypertensi on (ICD-10 - I10) His blood pressure has been stable. He was given an appointment in the near future to return to the office to measure his vital signs. 08/12/2024 Paroxysmal atrial fibrillation (ICD-10 - I48.0) He has been a persistent sinus rhythm since his last visit. He remains anticoagulated. 09/19/2023 Paroxysmal atrial fibrillation (ICD-10 - I48.0) He has been a persistent sinus rhythm since his last visit. He remains anticoagulated. Plan Of Treatment Pending Test Test Name Order Date LIPID PANEL 10/19/2021 PSA, TOTAL 10/19/2021 CBC w DIFF 10/19/2021 SCREENING COLONOSCOPY 04/12/2023 Next Appt Details Provider Name:Eleuterio Zuñiga, 12/09/2024 03:00:00 PM, [address] [place] [address] [facility], [place], [address], Insurance Providers Payer Name Payer Address Payer Phone Subscriber Number Group Number Insured Name Patient Relationship to Insured Coverage Start Date Coverage End Date [address] [place] [phone] [id number] Dino Segundo Self - patient is the insured Medical (General) History Medical History History ICD Code former smoker osteoarthritis of hands. Neck and should er essential hypertension mixed hyperlipidemia coronary artery disease myocardial infarction [facility] enter 2004, angioplasty and stents penicillin allergy eczema Paroxysmal atrial fibrillation Patient had a surgery in the upper part of his abdomen, was a little anemic after coming out of the hospital, and had a feeding tube inserted in the past. Surgical History Surgery Date(Month/Year) coronary angioplasty x2 s/p HI 06/2005 surgery on elbow surgery on mandible colonoscopy at [facility] age 48 2008 Esophagectomy 08/2023 Abdominal surgery No history Hospitalization History Reason Date(Month/Year) cardiac cath Hospitalized in september No history
--- OUTSIDE RECORDS SUMMARY | 2024-08-25 19:31 | XMS_ITS ---
Author Organization Eleuterio Zuñiga III, MD Address [address] [place] [address] DR MYERS Mora [place] [phone] Care Team Providers Care It Operations Manager Name Role Phone Eleuterio Zuñiga Primary Care Provider Allergies Allergen (clinical drug ingredient) Drug/Non Drug Allergy documented on EMR Reaction Allergy Type Onset Date Status Penicillin Unknown Drug Allergy Active Bee Sting Unknown Allergy Active REASON FOR VISIT Adenocarcinoma of the gastroesophageal junction, Hypertension, Hyperlipidemia, Coronary artery disease Medications Medication SIG (Take, Route, Frequency, Duration) Notes Start Date End Date Status Aspirin Adult Low Dose 81 MG 1 tablet Orally Once a day Active Metoprolol Succinate ER 100 MG TAKE 1 TABLET BY MOUTH EVERY DAY Active Atorvastatin Calcium 80 MG TAKE 1 TABLET BY MOUTH EVERY DAY Active Triamcinolone Acetonide 0.5 % 1 application Externally Once a day 11/30/2023 Active Omeprazole 40 MG 1 capsule 30 minutes before morning meal Orally Once a day Active Eliquis 5 MG 1 tablet Orally Twic e a day Active Social History Tobacco Use: Social History [...] Non-User Ex-cigaret te smoker Vital Signs Temperature 100.3 degrees Fahrenheit 024 Blood pressure systolic 125 mm Hg 03/17/20 24 Blood pressure diastolic 66 mm Hg 08/19/2 024 Heart Rate 53 /min 03/17/2024 Height 72 in 03/17/2024 Weight 149 lbs 03/17/2024 BMI 20.21 kg/m2 03/17/2024 Encounters Encounter Location Date Provider Diagnosis Eleuterio Zuñiga III, MD [address] [place] [address] DR [place]QU[place], [place] [phone] 03/17/2024 Eleuterio Zuñiga 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 I recommended strongly that he consider the additional treatment recommended by medical oncology. He has decided to proceed with the additional treatment. 03/17/2024 Eczema, unspecified type (ICD-10 - L30.9) His eczema is currently mild and well-controlled and no change in his regimen as needed. 03/17/2024 Essential hypertensi on (ICD-10 - I10) His blood pressure has been stable. He was given an appointment in the near future to return to the office to measure his vital signs. 03/17/2024 Osteoarthritis, unspecified osteoarthritis type, unspecified site (ICD-10 - M19.90) He has mild to moderate arthritic symptoms in his shoulders. They do not affect his ability to conduct all of the activities of daily life. But he finds them annoying and he wants to have another injection so this was arranged. 03/17/2024 Former smoker (ICD-1 0 - Z87.891) He is highly motivated not to smoke. He has formulated a plan to prevent relapse in times of stress and illness. 03/17/2024 Coronary artery dise ase involving northwestern shoshone coronary artery of northwestern shoshone heart without angina pectoris (ICD-10 - I25.10) He has had no episodes of angina or diaphoresis since his last visit. Current therapy was continued. Plan Of Treatment Medication Medication Name Sig Start Date Stop Date Notes Aspirin Adult Low Dose 81 MG 1 tablet Orally Once a day Metoprolol Succinate ER 100 MG TAKE 1 TA BLET BY MOUTH EVERY DAY Atorvastatin Calcium 80 MG TAKE 1 TABLET BY MOUTH EVERY DAY Triamcinolone Acetonide 0.5 % 1 applicat ion Externally Once a day 11/30/2023 Omeprazole 40 MG 1 capsule 30 minutes before morning meal Orally Once a day Eliquis 5 MG 1 tablet Orally Twice a day Next Appt Details Follow Up: 2 Months, Reason: OV Provider Name:Eleuterio Zuñiga, 12/09/2024 03:00:00 PM, [address] [place] [address] , [place] [id number], [place], [phone], Progress Notes * Dino SIMS ADOB:[birth year] (63 yo M)Acc No.[id number]:03/17/2024 Progress Notes Patient:?Dino Sims Provider:?Eleuterio Zuñiga MD :1960???Age:63 Y???Sex:Male Herb e:03/17/2024 Address: [address], [id number] Subjective: * Chief Complaints: * ???Adenocarcinoma of the gas troesophageal junctionHypertensionHyperlipidemiaCoronary artery disease * HPI: ???COVID-19 Screening:? He returns for medical management. His appetite is much better. He is able to eat 3 meals a day without dysphagia. He denies any pain. No relapse has been detected. He remains under the care of a gastrointestinal medical oncologist at [facility]. ?Questions?Have you experienced fever, chills, cough, sore throat, shortness of breath, difficulty breathing, muscle aches, loss of taste or smell??No ?Have you been exposed to the virus within the last 10 days??No ?Have you travelled internationally in the last 10 days??No ?Have you been exposed to COVID-19 in the past??Yes * ROS:?General/Constitutional:?pain?only normal aches and pains.?Chills?denies.?Fatigue?Continues extreme.?Fever?denies.?ENT:?Decreased hearing?denies.?Respiratory:?Cough?denies.?Cardiovascular:?Chest pain with exertion?denies.?Dyspnea on exertion?denies.?Shortness of breath?denies.?Gastrointestinal:?Constipation?occasional.?Decreased appetite?denies.?Diarrhea?denies.?Heartburn?denies.?Nausea?denies.?Rectal bleeding?denies.?Vomiting?denies.?Hematology:?bruising?denies.?petechiae?denies.?Swollen glands?none have been noted.?Genitourinary:?Frequent urination?once a night.?Musculoskeletal:?Muscle aches?denies.?Painful joints?denies.?Sciatica?denies.?Weakness?that is generalized.?Skin:?Itching?denies.?Rash?denies.?Skin lesion(s)?denies.?Neurologic:?Difficulty speaking?denies.?Dizziness?denies.?Headache?denies.?Low back pain?denies.?Psychiatric:?Depressed mood?denies.? * Medical History:? * Surgical History:?coronary a ngioplasty x2 s/p [place] 06/2005surgery on elbow surgery on mandible colonoscopy at 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 He plans to return at the age of 60. He works 40 hours a week. He has been to Lori for 38 years. They have 2 sons and one daughter and 5 grandchildren, all of whom are healthy. 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 * Medications:?TakingEliquis 5 MG Tablet 1 tablet Orally Twice a dayAspirin Adult Low Dose 81 MG Tablet Delayed Release 1 tablet Orally Once a dayMetoprolol Succinate ER 100 MG Tablet Extended Release 24 Hour TAKE 1 TABLET BY MOUTH EVERY DAY Atorvastatin Calcium 80 MG Tablet TAKE 1 TABLET BY MOUTH EVERY DAY Triamcinolone Acetonide 0.5 % Cream 1 application Externally Once a dayOmeprazole 40 MG Capsule Delayed Release 1 capsule 30 minutes before morning meal Orally Once a dayMedication List reviewed and reconciled with the patientTaking Eliquis 5 MG Tablet 1 tablet Orally Twice a dayTaking Aspirin Adult Low Dose 81 MG Tablet Delayed Release 1 tablet Orally Once a dayTaking Metoprolol Succinate ER 100 MG Tablet Extended Release 24 Hour TAKE 1 TABLET BY MOUTH EVERY DAY Taking Atorvastatin Calcium 80 MG Tablet TAKE 1 TABLET BY MOUTH EVERY DAY Taking Triamcinolone Acetonide 0.5 % Cream 1 application Externally Once a dayTaking Omeprazole 40 MG Capsule Delayed Release 1 capsule 30 minutes before morning meal Orally Once a dayMedication List reviewed and reconciled with the patient * Allergies:?PenicillinBee Melquiades kauffman[Allergies Verified] Objective: * Vitals:?Ht: 72, Wt:149, BMI: 20.21, BP:125/66, HR:53, Temp:100.3, Ht-cm: 182.88, Wt-k.59. * Examination: ???General Examination: ?GENERAL APPEARANCE:?pleasant, well nourished, well developed, in no acute distress, calm and relaxed , man.?HEAD:?atraumatic, normocephalic.?EYES:?eomi, perrla, anicteric, conjugate.?EARS:?normal.?NOSE:?septum intact.?ORAL CAVITY:?normal, unremarkable.?NECK/THYROID:?no jugular venous distention, no carotid bruit, thyroid normal.?LYMPH NODES:?no enlarged lymph nodes,spleen normal.?SKIN:?no suspicious lesions, anicteric.?HEART:?no clicks, gallops, murmurs, or rubs, regular rhythm, S1, S2 normal, no s3, or vascular bruits.?LUNGS:?clear to auscultation .?BREASTS:??no masses palpable bilaterally.?ABDOMEN:?bowel sounds normal, no ascites, no organomegaly, no mass, Numerous surgical scars are healed.?RECTAL EXAM:?not examined.?MUSCULOSKELETAL:?extremities unremarkable, no clubbing, cyanosis or edema.?PERIPHERAL PULSES:?normal.?NEUROLOGIC:?alert and oriented, cranial nerves 2-12 grossly intact, deep tendon reflexes 2+ symmetrical, motor strength normal upper and lower extremities, sensory exam intact.?PSYCH:?alert, oriented, Tired.? Assessment: * Assessment: 1.?Adenocarcinoma of gastroe sophageal junction - C16.0 (Primary), He is recovering from his treatment. I recommended strongly that he consider the additional treatment recommended by medical oncology. He has decided to proceed with the additional treatment.?2.?Eczema, unspecified type - L30.9, His eczema is currently mild and well-controlled and no change in his regimen as needed. 3.?Essential hypertension - I10, His blood pressure has been stable. He was given an appointment in the near future to return to the office to measure his vital signs.?4.?Osteoarthritis, unspecified osteoarthritis type, unspecified site - M19.90, He has mild to moderate arthritic symptoms in his shoulders. They do not affect his ability to conduct all of the activities of daily life. But he finds them annoying and he wants to have another injection so this was arranged.?5.?Former smoker - Z87.891, He is highly motivated not to smoke. He has formulated a plan to prevent relapse in times of stress and illness.?6.?Coronary artery disease involving northwestern [place] coronary artery of northwestern shoshone heart without angina pectoris - I25.10, He has had no episodes of angina or diaphoresis since his last visit. Current therapy was continued.? Plan: * Treatment: 2.?Others? Continue Eliquis Tablet, 5 MG, 1 tablet, Orally, Twice a day;?Continue Aspirin Adult Low Dose Tablet Delayed Release, 81 MG, 1 tablet, Orally, Once a day;?Continue Metoprolol Succinate ER Tablet Extended Release 24 Hour, 100 MG, TAKE 1 TABLET BY MOUTH EVERY DAY;?Continue Atorvastatin Calcium Tablet, 80 MG, TAKE 1 TABLET BY MOUTH EVERY DAY;?Continue Triamcinolone Acetonide Cream, 0.5 %, 1 application, Externally, Once a day.?? * Procedure Codes:? * Preventive Medicine:? ??Counseling:?Smoking/Tobacco Use?Patient counseled on the dangers of tobacco use and urged to quit.?03/17/2024 * Follow Up:?2 Months (Reason: OV) * Images: * Sign off status: Completed true * Provider:?Eleuterio Zuñiga MD Date:?02/27 Generated for Carlos poole/Barbara/eTransmitting on:?08/25/2024 07:31 PM EST History and Physical Notes * HPI (History of Present Illness) Category Sub-Category Detail Notes COVID-19 Screening Questions Have you had any new onset fever, chills, cough, congestion, sore throat, shortness of breath, muscle aches?: No Have you been exposed to the virus withi n the last 10 days?: No Have you travelled internationally in [facility] last 10 days?: No Have you been exposed to COVID-19 in the past?: Yes Examination Category Sub-Category Detail Notes General Examination GENERAL APPEARANCE: pleasant , well nourished, well developed, in no acute distress, calm and relaxed , man HEAD: atraumatic, normocep halic EYES: eomi, perrla, anicte nae, conjugate EARS: normal NOSE: septum intact NECK/THYROID: no jugular venous di stention, no carotid bruit, thyroid normal HEART: no clicks, gallops, murmurs, or rubs, regular rhythm, S1, S2 normal, no s3, or vascular bruits LUNGS: clear to auscultatio n ABDOMEN: bowel sounds normal, no ascites, no organomegaly, no mass, Numerous surgical scars are healed NEUROLOGIC: alert and oriented, cranial nerves 2-12 grossly intact, deep tendon reflexes 2+ symmetrical, motor strength normal upper and lower extremities, sensory exam intact SKIN: no suspicious lesion s, anicteric PERIPHERAL PULSES: normal BREASTS: no masses palpable b ilaterally MUSCULOSKELETAL: extremities unremark able, no clubbing, cyanosis or edema LYMPH NODES: no enlarged lymph no renetta,spleen normal RECTAL EXAM: not examined PSYCH: alert, oriented, Tir ed ORAL CAVITY: normal, unremarkable
--- OUTSIDE RECORDS SUMMARY | 2024-08-25 19:32 | XMS_ITS ---
Author Organization Eleuterio Zuñiga III, MD Address [address] [place] [address] [address] [place] [address] Care Team Providers Care Web Site Admin Name Role Phone Eleuterio Zuñiga Primary Care Provider Allergies Allergen (clinical drug ingredient) Drug/Non Drug Allergy documented on EMR Reaction Allergy Type Onset Date Status Penicillin Unknown Drug Allergy Active Bee Sting Unknown Allergy Active REASON FOR VISIT History of adenocarcinoma of the GE junction, Hypertension, Hyperlipidemia, Coronary artery disease, Paroxysmal atrial fibrillation, Benign prostatic hypertrophy Medications Medication SIG (Take, Route, Frequency, Duration) Notes Start Date End Date Status Aspirin Adult Low Dose 81 MG 1 tablet Orally Once a day Active Atorvastatin Calcium 80 MG TAKE 1 TABLET BY MOUTH EVERY DAY Active Eliquis 5 MG 1 tablet Orally Twic e a day Active Sucralfate 1 GM/10ML PLEASE SEE ATTACHED FOR DETAILED DIRECTIONS Oral Active predniSONE 20 MG TAKE 3 TABLETS BY [facility] DAILY FOR 30 DAYS. TAKE WITH FOOD OR MILK Oral Active Metoprolol Succinate ER 100 MG TAKE 1 TABLET BY MOUTH EVERY DAY Active Triamcinolone Acetonide 0.5 % 1 application Externally Once a day 11/30/2023 Active Omeprazole 40 MG 1 capsule 30 minutes before morning meal Orally Once a day Active Social History Tobacco Use: [...] Problem Status W/U Status Risk Notes Problem [id number] Underweight (R63.6) Active confirmed He has lost 4 more pounds. We discussed diet and nutrition. I asked him to speak with medical oncology eval using an appetite stimulant as this is in their domain of treatment. 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 I recommended strongly that he consider the additional treatment recommended by medical oncology. He has areed to 12 months of nuvolumab infusions. 05/19/2024 Coronary artery dise ase involving nooksack coronary artery of nooksack heart without angina pectoris (ICD-10 - I25.10) He has had no episodes of angina or diaphoresis since his last visit. Current therapy was continued. 05/19/2024 Essential hypertensi on (ICD-10 - I10) His blood pressure has been stable. He was given an appointment in the near future to return to the office to measure his vital signs. 05/19/2024 Mixed hyperlipidemia (ICD-10 - E78.2) His lipids has been within target values and no change in his regimen was necessary today. 05/19/2024 Former smoker (ICD-1 0 - Z87.891) He is highly motivated not to smoke. He has formulated a plan to prevent relapse in times of stress and illness. 05/19/2024 Paroxysmal atrial fibrillation (ICD-10 - I48.0) He has been a persistent sinus rhythm since his last visit. He remains anticoagulated. 05/19/2024 Underweight (ICD-10 - R63.6) He has lost 4 more pounds. We discussed diet and nutrition. I asked him to speak with medical oncology eval using an appetite stimulant as this is in their domain of treatment. Plan Of Treatment Medication Medication Name Sig Start Date Stop Date Notes Aspirin Adult Low Dose 81 MG 1 tablet Orally Once a day Atorvastatin Calcium 80 MG TAKE 1 TABLET BY MOUTH EVERY DAY Eliquis 5 MG 1 tablet Orally Twice a day Sucralfate 1 GM/10ML PLEASE SEE ATTACHED FOR DETAILED DIRECTIONS Oral predniSONE 20 MG TAKE 3 TABLETS BY [facility] DAILY FOR 30 DAYS. TAKE WITH FOOD OR MILK Oral Metoprolol Succinate ER 100 MG TAKE 1 TA BLET BY MOUTH EVERY DAY Triamcinolone Acetonide 0.5 % 1 applicat ion Externally Once a day 11/30/2023 Omeprazole 40 MG 1 capsule 30 minutes before morning meal Orally Once a day Next Appt Details Follow Up: 3 Months, After t holidays, Reason: OV, Regular scheduled visit Provider Name:Eleuterio Zuñiga, 12/09/2024 03:00:00 PM, [address] [place] [address] [address] [address], [place], [address], Progress Notes * Dino SIMS ADOB:[birth year] (63 yo M)Acc No.[id number]:05/19/2024 Progress Notes Patient:?Dino SIMS Provider:?Eleuterio Zuñiga MD :1960???Age:63 Y???Sex:Male Herb e:05/19/2024 Address: [address], [id number] Subjective: * Chief Complaints: * ???History of adenocarcinoma of the GE junctionHypertensionHyperlipidemiaCoronary artery diseaseParoxysmal atrial fibrillationBenign prostatic hypertrophy * HPI: ???COVID-19 Screening:?Questions?Have you experienced fever, chills, cough, sore throat, shortness of breath, difficulty breathing, muscle aches, loss of taste or smell??No ?Have you been exposed to the virus within the last 10 days??No ?Have you travelled internationally in the last 10 days??No ?Have you been exposed to COVID-19 in the past??Yes ???:? The patient, Dino, a 63-year-old male, presented with stomach issues and pain, particularly after meals. The pain was located in the upper part of his abdomen, where he had previously undergone surgery. He had been prescribed a liquid medication, the name of which he could not recall, which seemed to alleviate his symptoms. He had also started immunotherapy about three to four weeks prior to the consultation, having already received two treatments. However, his third treatment was postponed due to abnormal liver function detected in his blood tests. He was prescribed Prednisone for this issue. The patient also reported a period of weight loss and reduced appetite due to the pain experienced after eating. He also mentioned a scar from a previous feeding tube insertion. * ROS:?General/Constitutional:?Admits?pain,?only normal aches and pains.?Chills?denies.?Fatigue?admits.?Fever?denies.?Admits?Weight loss.?ENT:?Decreased hearing?denies.?Respiratory:?Cough?denies.?Cardiovascular:?Chest pain with exertion?denies.?Dyspnea on exertion?denies.?Shortness of breath?denies.?Gastrointestinal:?Constipation?occasional.?Decreased appetite?that is associated with weight loss.?Diarrhea?denies.?Heartburn?occasional.?Nausea?denies.?Rectal bleeding?denies.?Vomiting?denies.?Hematology:?bruising?denies.?petechiae?denies.?Swollen glands?none have been noted.?Genitourinary:?Frequent urination?once a night.?Musculoskeletal:?Muscle aches?denies.?Painful joints?denies.?Sciatica?denies.?Weakness?denies.?Skin:?Itching?denies.?Rash?denies.?Skin lesion(s)?denies.?Neurologic:?Difficulty speaking?denies.?Dizziness?denies.?Headache?denies.?Low back pain?denies.?Psychiatric:?Depressed mood?denies.? * Medical History:? * Surgical History:?coronary a ngioplasty x2 s/p PA 06/2005surgery on elbow surgery on mandible colonoscopy at [facility] age 48 2009Esophagectomy 4Abdominal surgery * Hospitalization/Major Diagno stic Procedure:?cardiac cath Hospitalized in september * Family History:?Father: dece ased 47 yrs, Myocardial infarction, diagnosed with CVD.?Mother: alive 93 yrs, Peripheral arterial disease with a carotid stent, history of myocardial infarction, coronary artery disease, diabetes, hypertension, diagnosed with DM, HTN.?Siblings: alive, diagnosed with CVD.?Paternal uncle: , diagnosed [...] 10 years ?Additional Findings: Tobacco Non-User?Ex-cigarette smoker ???Drugs/Alcohol:?Drugs?Have you used drugs other than those for medical reasons in the past 12 months??No ?Alcohol Screen?Did you have a drink containing alcohol in the past year??No ?Points?0 ?Interpretation?Negative ???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 He plans to return at the age of 60. He works 40 hours a week. He has been to Lori for 38 years. They have 2 sons and one daughter and 5 grandchildren, all of whom are healthy. 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 Patient enjoys playing golf and drinking beer in moderation. * Medications:?TakingEliquis 5 MG Tablet 1 tablet [...] before morning meal Orally Once a day Atorvastatin Calcium 80 MG Tablet TAKE 1 TABLET BY MOUTH EVERY DAY Sucralfate 1 GM/10ML Suspension PLEASE SEE ATTACHED FOR DETAILED DIRECTIONS Oral predniSONE 20 MG Tablet TAKE 3 TABLETS BY MOUTH DAILY FOR 30 DAYS. TAKE WITH FOOD OR MILK Oral Medication List reviewed and reconciled with the patientTaking [...] morning meal Orally Once a day Taking Atorvastatin Calcium 80 MG Tablet TAKE 1 TABLET BY MOUTH EVERY DAY Taking Sucralfate 1 GM/10ML Suspension PLEASE SEE ATTACHED FOR DETAILED DIRECTIONS Oral Taking predniSONE 20 MG Tablet TAKE 3 TABLETS BY MOUTH DAILY FOR 30 DAYS. TAKE WITH FOOD OR MILK Oral Medication List reviewed and reconciled with the patient * Allergies:?Emile kauffman[Allergies Verified] Objective: * Vitals:?Ht: 72, Wt:145, BMI: 19.66, BP:105/58, HR:53, Temp:98.4, Ht-cm: 182.88, Wt-k.77. * Examination: ???General Examination: ?GENERAL APPEARANCE:?pleasant, well [...] normal, no ascites, no organomegaly, no mass, Healed upper abdominal incision.?RECTAL EXAM:?not examined.?MUSCULOSKELETAL:?extremities unremarkable, no clubbing, cyanosis or edema.?PERIPHERAL PULSES:?normal.?NEUROLOGIC:?alert and oriented, cranial nerves 2-12 grossly intact, deep tendon reflexes 2+ symmetrical, motor strength normal upper and lower extremities, sensory exam intact.?PSYCH:?alert, oriented.? : ???Heart and Lungs:Normal, Abdomen: Scar from previous feeding tube insertion, no pain or tumor detected. ??? Assessment: * Assessment: 1.?Coronary artery disease i nvolving nooksack coronary artery of nooksack heart without angina pectoris - I25.10 (Primary)???Notes :He has had no episodes of angina or diaphoresis since his last visit. 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 I recommended strongly that he consider the additional treatment recommended by medical oncology. He has areed to 12 months of nuvolumab infusions.???3.?Essential hypertension - I10???Notes :His blood pressure has been stable. He was given an appointment in the near future to return to the office to measure his vital signs.???4.?Mixed hyperlipidemia - E78.2???Notes :His lipids has been within target values and no change in his regimen was necessary today.???5.?Former smoker - Z87.891???Notes :He is highly motivated not to smoke. He has formulated a plan to prevent relapse in times of stress and illness.???6.?Paroxysmal atrial fibrillation - I48.0???Notes :He has been a persistent sinus rhythm since his last visit. He remains anticoagulated.???7.?Underweight - R63.6???Notes :He has lost 4 more pounds.? We discussed diet and nutrition.? I asked him to speak with medical oncology eval using an appetite stimulant as this is in their domain of treatment.??? Plan: * Treatment: 2.?Others? Continue Atorvastatin Calcium [...] for abnormal BMI given?Yes ?Below Normal BMI Follow-up?Dietary education for weight gain, Dietary management education, guidance, and counseling, Feeding regime, Lifestyle education regarding diet, Nutrition / feeding management, Prescribed diet education, Special diet education, Intervention, Order not done: Medical or Other reason not done * Follow Up:?3 Months, After holidays (Reason: OV, Regular scheduled visit) * Images: * Sign off status: Completed true * Provider:?lEeuterio Zuiñga MD Date:?04/30 Generated for Carlos poole/Barbara/eTransmitting on:?08/25/2024 07:31 PM EST History and Physical Notes * HPI (History of Present Illness) Category Sub-Category Detail Notes COVID-19 Screening Questions Have you had any new onset fever, chills, cough, congestion, sore throat, shortness of breath, muscle aches?: No Have you been exposed to the virus with n the last 10 days?: No Have you travelled internationally in e last 10 days?: No Have you been [...] normal, no ascites, no organomegaly, no mass, Healed upper abdominal incision NEUROLOGIC: alert and oriented, cranial nerves 2-12 grossly intact, deep tendon reflexes 2+ symmetrical, motor strength normal upper and lower extremities, sensory exam intact SKIN: no suspicious lesion s, anicteric PERIPHERAL PULSES: normal BREASTS: no masses palpable b ilaterally MUSCULOSKELETAL: extremities unremark able, no clubbing, cyanosis or edema LYMPH NODES: no enlarged lymph no renetta,spleen normal RECTAL EXAM: not examined PSYCH: alert, oriented ORAL CAVITY: normal, unremarkable
--- OUTSIDE RECORDS SUMMARY | 2024-08-25 19:32 | XMS_ITS ---
Author Organization [facility] Address [address] [place] [address] Care Team Providers Care Customs Agent Name Role Phone Zara LUA, Eleuterio Primary Care Provider Unavailab Eleuterio Wilhelm Unavailable [phone] REASON FOR VISIT fe def anemia ,epigastric pain,dysphagia,screening PROBLEMS Problem Type ICD Code Onset Dates Problem Status W/U Status Risk SNOMED Code Notes Problem Diverticulosis of colon (K57.30) Active confirmed Diverticulosi s of colon (924965641) Problem Iron deficiency anemia (D50.9) Active confirmed Iron deficien cy anemia (58630399) Problem Dysphagia (R13.10) Active confirmed Dysphagia (75693491) Encounters Encounter Location Date Provider Diagnosis [facility] [place] [facility] [address] [place] [phone] 04/12/2023 Eleuterio Pineda Colon polyp K63.5 ; Diverticulosis of colon K57.30 ; Internal hemorrhoids K64.8 ; Iron deficiency anemia D50.9 ; 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
== END 2024-08-25 16:03 | disposition home or self-care (01) ==
PROVIDERS: PCP Internal Medicine Medical Oncology; Visit Provider Internal Medicine Cardiovascular Disease
DX: I25.10 Atherosclerotic heart disease of native coronary artery without angina pectoris (principal); I48.0 Paroxysmal atrial fibrillation
CPT/HCPCS: 93010; 99214

== ENCOUNTER → 2024-08-25 15:28 | Outpatient (BNVA) | payer OTHER, SELFPAY | PROVIDERS: PCP Internal Medicine Medical Oncology; Visit Provider Internal Medicine Cardiovascular Disease | DX: I25.118 Atherosclerotic heart disease of native coronary artery with other forms of angina pectoris (principal); I48.0 Paroxysmal atrial fibrillation; Z79.01 Long term (current) use of anticoagulants; Z79.899 Other long term (current) drug therapy | CPT/HCPCS: 93005 ==

== ENCOUNTER 2025-02-13 22:17 | Inpatient (IN) | payer OTHER, SELFPAY ==
--- NOTE | ~2025-02-13 | MR_ITS ---
CLINICAL HISTORY: Hx esophageal CA (tumor removed in 2023). Pancreatic atrophy MRI of the abdomen with and without IV contrast. COMPARISON: CT abdomen and pelvis dated 02/14/25 at 00:[address] abdomen and pelvis dated 04/24/23 at 11:27 EDT FINDINGS: Hepatic cyst within the right hepatic lobe measuring 0.6 cm. Uniform splenic signal. Normal adrenal glands. Symmetric renal size. Simple left renal cysts measuring up to 3.5 cm. Small right renal cyst measuring 0.4 cm. No hydronephrosis. Visualized portions of the bowel in the upper abdomen are unremarkable. No retroperitoneal lymphadenopathy. Status post gastric pull-through. No abnormal enhancement or adjacent nodularity. No periesophageal lymphadenopathy. Mildly atrophic pancreas, new since imaging performed in 2022. Pancreatic duct is not dilated. No pancreatic head mass. No cholelithiasis. No pericholecystic inflammatory changes. Common bile duct measures 6 mm in the pancreatic head. No choledocholithiasis. Pancreatic duct measures 2-3 mm in the pancreatic head. Moderate aortoiliac atherosclerotic vascular calcifications. SMA and SMV are appropriately enhancing. Mild multilevel spondylosis. Schmorl's node at the superior endplate of T11 and inferior endplate of L4. Mild enhancement within the subcutaneous soft tissues along the anterior abdominal wall on the left measuring 1.3 cm. Linear enhancement extends through the abdominal wall musculature on the left. IMPRESSION: 1. Mildly pancreatic atrophy new since imaging performed in 2022. No evidence of pancreatitis. No pancreatic head mass or choledocholithiasis. 2. Status post gastric pull-through. No retroperitoneal or paraesophageal lymphadenopathy. 3. Mild enhancement and nodularity within the subcutaneous soft tissues and abdominal wall musculature along the ventral abdominal wall the left. This is of unclear etiology and courses bones with nodularity seen on recent CT. Recommend correlation with clinical/surgical history. Ultrasound may be helpful for further characterization. This document has been electronically signed by: Oscar Foley MD on 02/14/2025 18:56:40
--- NOTE | ~2025-02-13 | CT_ITS ---
CLINICAL HISTORY: Unexplained hypoglycemia? Pancreatic tumor CT abdomen and pelvis with contrast Comparison: CT/SR - CT ABDOMEN PELVIS WITH IV CONTRAST - 04/24/23 11:27 EDT Findings: The lung bases are clear. Hepatic steatosis. Periportal edema. Subcentimeter right hepatic lobe cyst. Pancreatic atrophy, new from prior. No discrete mass seen. Main pancreatic duct is not dilated. Gallbladder, spleen, and adrenal glands are within normal limits. No hydronephrosis. Symmetric contrast enhancement of the kidneys. Right renal cysts. Postsurgical changes in the stomach. No bowel obstruction, pneumatosis or pneumoperitoneum. Dilated main portal vein measuring up to 1.7 cm, similar to prior. Portal venous system is patent. Aortic atherosclerosis. No aneurysm. No enlarged abdominopelvic lymph nodes. 9 mm subcutaneous soft tissue nodule in the left lower anterior abdominal wall, new from prior. Mild diffuse urinary bladder wall thickening. Degenerative changes of the spine. No suspicious osseous lesions. IMPRESSION: 1. Pancreatic atrophy, new from prior. No discrete mass seen. 2. Mild diffuse urinary bladder wall thickening, correlate for cystitis. 3. Nonspecific periportal edema. 4. 9 mm subcutaneous soft tissue nodule in the left lower anterior abdominal wall, new from prior ( axial image 43/94 ). If there is a history of malignancy, consider biopsy/tissue sampling. This document has been electronically signed by: Dolores Burns MD on 02/14/2025 01:04:57
--- NOTE | ~2025-02-13 | CT_ITS ---
CLINICAL HISTORY: syncope CT head without contrast Comparison: None provided Findings: No intra-axial mass, midline shift, hydrocephalus, or acute hemorrhage. No significant atrophy-like change or white matter disease. There is no sinus or mastoid fluid. The orbits are unremarkable. No skull fracture. IMPRESSION: 1. No acute intracranial findings. This document has been electronically signed by: Galo Sanderson MD on 02/14/2025 07:25:43
[2025-02-13 22:28] LABS: Glucose, Whole Blood 56 mg/dL (60-115)
[2025-02-13 22:42] VITALS: BP 114/65; PULSE 53; RESP 18; TEMP 37.1; O2SAT 98; BMI 22.9
[2025-02-13 22:45] LABS: Glucose, Whole Blood 120 mg/dL (60-115)
--- NOTE | 2025-02-13 22:47 | PC.NURSE ---
Patient ate a sunbutter and jelly, drank an apple juice and an orange juice
[2025-02-13 23:05] LABS: MANUAL DIFF FLAG NO
[2025-02-13 23:09] LABS: Hematocrit 41.8 % (42.0-52.0); Hemoglobin 14.8 g/dl (14.0-18.0); Imm Gran Abs Auto 0.02 X10*3/uL (0.00-0.03); Imm Gran Pct Auto 0.3 % (0.0-0.4); Lymphocytes Absolute Auto 0.9 X10*3/uL (1.2-4.9); Mean Corpuscular HGB Conc 35.4 g/dl (31.0-36.0); Mean Corpuscular Hemoglobin 32.8 pg (27.0-33.0); Mean Corpuscular Volume 92.7 fL (80.0-98.0); NRBC Abs Auto 0.000 X10*3/uL (0.0-0.012); NRBC Pct Auto 0.0 /100WBC (0.0-0.2); Platelet Count 106 X10*3/uL (160-400); Red Blood Count 4.51 X10*6/uL (4.60-5.80); White Blood Count 6.2 X10*3/uL (4.8-10.8)
[2025-02-13 23:22] LABS: Alanine Aminotransferase 52 U/L (0-40); Albumin Level 4.3 g/dL (3.5-5.0); Alkaline Phosphatase 342 U/L (39-117); Anion Gap 16 (12-20); Aspartate Amino Transferase 51 U/L (5-37); Blood Urea Nitrogen 12 mg/dL (9-16); Calcium 8.8 mg/dL (8.4-10.2); Carbon Dioxide 20 mmol/L (22-29); Chloride 108 mmol/L (96-108); Creatinine Clr Calc Pharmacy 62.4; Estimated Glomerular Filt Rate > 60; Lipase 19 U/L (8-78); Magnesium 2.1 mg/dL (1.6-2.6); Potassium 3.5 mmol/L (3.3-5.1); Sodium 140 mmol/L (135-145); Total Protein 6.9 g/dL (6.5-8.0)
--- NOTE | 2025-02-13 23:41 | ED.GENADULT ---
HPI - General Adult General Chief complaint: Altered Mental Status Stated complaint: AMS HYPOGLYCEMIC Time Seen by Provider: 02/13/25 22:25 Source: patient Mode of arrival: ambulatory Limitations: no limitations History of Present Illness ED Provider: HPI narrative: Patient's history of AFib, hypotension nondiabetic , esophageal cancer been eating well no recent weight loss had few drinks alcohol yesterday and today just prior to arrival noticed that patient is sweating and very weak EMS came checked her blood sugar was 30 was given oral glucose with partial response started on 250 cc of IV dextrose on arrival patient's blood glucose was 56 patient has had sandwich in the ER repeat blood sugar was 120 Related Data Home Medications ?Medication ?Instructions ?Recorded ?Confirmed aspirin 81 mg tablet,delayed 81 mg PO DAILY 11/17/20 08/25/24 release (Adult Low Dose Aspirin) Previous Rx's ?Medication ?Instructions ?Recorded atorvastatin 80 mg tablet 80 mg PO DAILY #90 tabs 12/17/20 apixaban 5 mg tablet (Eliquis) 5 mg PO BID #180 tabs 10/28/24 metoprolol succinate 50 mg 50 mg PO DAILY #90 tabs 12/29/24 tablet,extended release 24 hr Allergies Allergy/AdvReac Type Severity Reaction Status Date / Time penicillin G Allergy Unknown Unknown Verified 02/13/25 22:45 Review of Systems Review of Systems: Yes all other systems are reviewed and are negative PMF Past Medical History Medical History Hyperlipemia Arthritis Surgical History H/O esophagectomy H/O heart artery stent History of elbow surgery History of mandibular surgery History of cardiac cath Family History Family History Father CAD (coronary artery disease) Mother HTN (hypertension) CAD (coronary artery disease) Social History Social History Alcohol intake: current Alcohol intake frequency: a few times a week Alcohol type: beer Patient Tobacco Use Status: Never used Tobacco Years Smoked: 40+ Use of substances other than those prescribed or required for medical reasons: No Advance Directives: No Advance Directives Information Provided: No Do you have a plan to hurt others: No Plan Physical Exam ED Exam Exam: Appearance: Alert. Oriented X3. No acute distress. Eyes: PERRLA, No Nystagmus ENT: Pharynx normal. Oral Mucosa moist Neck: Normal inspection. Neck supple. CVS: Normal heart rate and rhythm. Pulses normal. Respiratory: No respiratory distress. Equal air entry bilateral, no wheezing/rales/rhonchi Abdomen: Soft and nontender. Bowel sounds are present, no mass palpable, no CVA tenderness Skin: Skin warm and dry. Normal skin color. Normal skin turgor. Extremities: No lower extremity edema. No calf tenderness Neuro: Oriented X 3. No motor deficit. No sensory deficit.No cerebellar signs , cranial nerves II-XII intact Vital Signs: Vital Signs - 24 hr 02/13/25 22:42 02/14/25 00:21 Temperature 98.7 F Pulse Rate 53 51 Respiratory Rate 18 16 Blood Pressure 114/65 143/74 H Pulse Oximetry 98 100 Oxygen Delivery Method Room Air Room Air BMI result Body Mass Index 22.9 Medications Administered Generic Name Dose Route Start Last Admin Trade Name Freq PRN Reason Stop Dose Admin Dextrose/Sodium Chloride 1,000 mls @ 100 mls/hr 02/14/25 02:30 02/14/25 03:25 D51/2ns IVCONT 100 mls/hr .Q10H OSCAR Administration Discontinued Medications Generic Name Dose Route Start Last Admin Trade Name Freq PRN Reason Stop Dose Admin Iohexol 85 ml 02/14/25 00:05 02/14/25 00:06 Iohexol 350 Mg/Ml 100 Ml Infus..Btl IV 02/14/25 00:06 85 ml ONCE ONE Administration Medical Decision Making Medical Decision Making [facility] Narrative: Patient with hypoglycemia from unknown etiology non diabetic, no signs of sepsis CT scan showed fibrotic changes in the pancreas. Will admit patient to rule out cause of hyper insulinoma possibly the cause of persistent hypoglycemia patient has had CTA negative for space-occupying lesion Differential Diagnosis Differential Diagnoses: The differential diagnosis associated with the presentation includes Admission/Observation Consideration of admission/observation: Escalation of care including admission/observation considered Consult Healthcare Provider Management of the patient was discussed with: Hospitalist Lab Data [facility] Lab Attestation statement: I reviewed the patient's lab results. 02/13/25 23:01 02/14/25 03:06 Labs: Lab Results 02/13/25 02/13/25 02/13/25 Range/Units 22:22 22:40 23:01 WBC 6.2 (4.8-10.8) X10*3/uL RBC 4.51 L D (4.60-5.80) X10*6/uL Hgb 14.8 (14.0-18.0) g/dl Hct 41.8 L (42.0-52.0) % MCV 92.7 (80.0-98.0) fL MCH 32.8 (27.0-33.0) pg MCHC 35.4 (31.0-36.0) g/dl RDW 14.1 (11.0-16.0) % Plt Count 106 L D (160-400) X10*3/uL MPV 10.4 (9.4-12.4) fL Immature Gran % (Auto) 0.3 (0.0-0.4) % Neut % (Auto) 76.3 H (45-73) % Lymph % (Auto) 14.5 L (20-40) % [place] % (Auto) 7.6 (2-11) % Eos % (Auto) 0.5 (0-4) % Baso % (Auto) 0.8 (0-2) % Lymph # (Auto) 0.9 L (1.2-4.9) X10*3/uL [place] # (Auto) 0.5 (0.1-1.2) X10*3/uL Eos # (Auto) 0.0 (0.0-0.4) X10*3/uL Baso # (Auto) 0.1 (0.0-0.2) X10*3/uL Abs Immat Gran (auto) 0.02 (0.00-0.03) X10*3/uL Absolute Neuts (auto) 4.7 (2.0-8.3) x10*3/uL Absolute Nucleated RBC 0.000 (0.0-0.012) X10*3/uL Nucleated RBC % (auto) 0.0 (0.0-0.2) /100WBC Sodium 140 (135-145) mmol/L Potassium 3.5 (3.3-5.1) mmol/L Chloride 108 (96-108) mmol/L Carbon Dioxide 20 L (22-29) mmol/L Anion Gap 16 (12-20) BUN 12 (9-16) mg/dL Creatinine 1.05 (0.5-1.4) mg/dL Estim Creat Clear Calc 62.4 Estimated GFR > 60 POC Glucose 56 L* 120 H (60-115) mg/dL Random Glucose 234 H (60-115) mg/dL Estimat Average Glucose 100 mg/dL Hemoglobin A1c % 5.1 (<6.0) % Calcium 8.8 (8.4-10.2) mg/dL Magnesium 2.1 (1.6-2.6) mg/dL Total Bilirubin 0.7 (0.0-1.0) mg/dL AST 51 H (5-37) U/L ALT 52 H (0-40) U/L Alkaline Phosphatase 342 H (39-117) U/L Total Protein 6.9 (6.5-8.0) g/dL Albumin 4.3 (3.5-5.0) g/dL Lipase 19 (8-78) U/L 02/14/25 02/14/25 Range/Units 00:47 02:21 WBC (4.8-10.8) X10*3/uL RBC (4.60-5.80) X10*6/uL Hgb (14.0-18.0) g/dl Hct (42.0-52.0) % MCV (80.0-98.0) fL MCH (27.0-33.0) pg MCHC (31.0-36.0) g/dl RDW (11.0-16.0) % Plt Count (160-400) X10*3/uL MPV (9.4-12.4) fL Immature Gran % (Auto) (0.0-0.4) % Neut % (Auto) (45-73) % Lymph % (Auto) (20-40) % [place] % (Auto) (2-11) % Eos % (Auto) (0-4) % Baso % (Auto) (0-2) % Lymph # (Auto) (1.2-4.9) X10*3/uL [place] # (Auto) (0.1-1.2) X10*3/uL Eos # (Auto) (0.0-0.4) X10*3/uL Baso # (Auto) (0.0-0.2) X10*3/uL Abs Immat Gran (auto) (0.00-0.03) X10*3/uL Absolute Neuts (auto) (2.0-8.3) x10*3/uL Absolute Nucleated RBC (0.0-0.012) X10*3/uL Nucleated RBC % (auto) (0.0-0.2) /100WBC Sodium (135-145) mmol/L Potassium (3.3-5.1) mmol/L Chloride (96-108) mmol/L Carbon Dioxide (22-29) mmol/L Anion Gap (12-20) BUN (9-16) mg/dL Creatinine (0.5-1.4) mg/dL Estim Creat Clear Calc Estimated GFR POC Glucose 76 151 H (60-115) mg/dL Random Glucose (60-115) mg/dL Estimat Average Glucose mg/dL Hemoglobin A1c % (<6.0) % Calcium (8.4-10.2) mg/dL Magnesium (1.6-2.6) mg/dL Total Bilirubin (0.0-1.0) mg/dL AST (5-37) U/L ALT (0-40) U/L Alkaline Phosphatase (39-117) U/L Total Protein (6.5-8.0) g/dL Albumin (3.5-5.0) g/dL Lipase (8-78) U/L Independent Interpretation I performed an independent interpretation of an: CT Scan Radiology Impression Discussion of test interpretation with radiology: I have reviewed the radiologist's reading. Radiologist Impression: [place] [id number] CT Scan Report Signed Patient: Dino Sims MR#: [id number] : 1960 Acct:[id number] Age/Sex: 64 / M ADM Date: 02/13/25 Loc: .ED Attending Dr: Ordering Physician: Mauro Garcia MD Date of Service: 02/13/25 Procedure(s): CT abdomen pelvis w IV con Accession Number(s): [id number] cc: Eleuterio Zuñiga MD; Mauro Garcia MD~ Report Number: [id number]: Total DLP = 283.00 mGy-cm CLINICAL HISTORY: Unexplained hypoglycemia? Pancreatic tumor CT abdomen and pelvis with contrast Comparison: CT/SR - CT ABDOMEN PELVIS WITH IV CONTRAST - 04/24/23 11:27 EDT Findings: The lung bases are clear. Hepatic steatosis. Periportal edema. Subcentimeter right hepatic lobe cyst. Pancreatic atrophy, new from prior. No discrete mass seen. Main pancreatic duct is not dilated. Gallbladder, spleen, and adrenal glands are within normal limits. No hydronephrosis. Symmetric contrast enhancement of the kidneys. Right renal cysts. Postsurgical changes in the stomach. No bowel obstruction, pneumatosis or pneumoperitoneum. Dilated main portal vein measuring up to 1.7 cm, similar to prior. Portal venous system is patent. Aortic atherosclerosis. No aneurysm. No enlarged abdominopelvic lymph nodes. 9 mm subcutaneous soft tissue nodule in the left lower anterior abdominal wall, new from prior. Mild diffuse urinary bladder wall thickening. Degenerative changes of the spine. No suspicious osseous lesions. IMPRESSION: 1. Pancreatic atrophy, new from prior. No discrete mass seen. 2. Mild diffuse urinary bladder wall thickening, correlate for cystitis. 3. Nonspecific periportal edema. 4. 9 mm subcutaneous soft tissue nodule in the left lower anterior abdominal wall, new from prior ( axial image 43/94 ). If there is a history of malignancy, consider biopsy/tissue sampling. This document has been electronically signed by: Dolores Burns MD on 02/14/2025 01:04:57 Critical Care Time Critical Care Time Critical Care Time: Yes Total Critical Care Time: 35 Attestation: Time is exclusive of separately billable procedures. Time includes: direct patient care, patient reassessment, coordination of patient care, interpretation of data (laboratory data, pulse oximetry, arterial blood gases and chest xrays), review of patient's medical records, medical consultation and documentation of patient care. Procedures excluded from critical care time: central intravenous line placement and electrocardiography. Discharge Plan Discharge Clinical Impression: PAF (paroxysmal atrial fibrillation), Hypoglycemia Patient Disposition: Admitted As Inpatient
[2025-02-14] VITALS (9 sets, daily range): BP systolic 115–161; BP diastolic 61–86; PULSE 42–95; RESP 12–18; TEMP 36.4–36.8; O2SAT 97–100; BMI 24.8
--- NOTE | 2025-02-14 | ECG_ITS ---
Test Reason : BRADYCARDIA Blood Pressure : */* mmHG Vent. Rate : 48 BPM Atrial Rate : 48 BPM P-R Int : 164 ms QRS Dur : 82 ms QT Int : 440 ms P-R-T Axes : 66 42 27 degrees QTcB Int : 393 ms Sinus bradycardia Otherwise normal ECG When compared with ECG of 25-Jul-2005 06:50, No significant change was found Referred By: Jarrett Davidson Electronically Signed By: KATERINA CARO
[2025-02-14] MEDS: iohexoL 350 MG/ML 100 ML INFUS..BTL 85 ML IV (00:06)
--- NOTE | 2025-02-14 00:49 | PC.NURSE ---
Repeat POC 76, pt given apple juice and gram crackers per request.
[2025-02-14 00:51] LABS: Glucose, Whole Blood 76 mg/dL (60-115)
[2025-02-14 02:30] LABS: Glucose, Whole Blood 151 mg/dL (60-115)
--- NOTE | 2025-02-14 02:35 | PM.IMHP ---
History of Present Illness Date of Service: 02/14/25 Chief Complaint: Syncope 64-year-old male with a past medical history of HTN, HLD, paroxysmal AFib on Eliquis presented to the hospital with a chief complaint of dizziness. Patient mentioned that he went out to have some drinks; after he came home he felt tired and exhausted; sat on the couch; when he got up he felt dizzy; he went to the bathroom he felt fuzzy and lightheaded; felt like he is going to lose consciousness but did not lose continence. Mentions he was aware of the surroundings throughout the time. Subsequently called his who called the ambulance to bring him to the hospital. When EMS arrived patient blood glucose levels were noted to be in 30s. Given dextrose with slight improvement in blood glucose levels. Follow the patient has eaten. Denies any seizure-like activity. Denies any chest pain or palpitations. Denies any illicit drug use. Denies any GI symptoms. Denies any fever chills cough or sputum production. Review of all other systems is negative except mentioned above ER course: Per ER team, patient blood glucose levels initially improved after the dextrose from the EMS. On arrival blood glucose levels were in 50s. On patient ate in the ER. The blood glucose levels were gradually improving. Patient was briefly placed on D10. Patient mentating well. [facility] Medical History Hyperlipemia Arthritis Family History Father CAD (coronary artery disease) Mother HTN (hypertension) CAD (coronary artery disease) Surgical History H/O esophagectomy H/O heart artery stent History of elbow surgery History of mandibular surgery History of cardiac cath Social History Alcohol intake: current Alcohol intake frequency: a few times a week Alcohol type: beer Patient Tobacco Use Status: Never used Tobacco Years Smoked: 40+ Use of substances other than those prescribed or required for medical reasons: No Advance Directives: No Advance Directives Information Provided: No Do you have a plan to hurt others: No Plan Meds Allergies Allergy/AdvReac Type Severity Reaction Status Date / Time penicillin G Allergy Unknown Unknown Verified 02/13/25 22:45 Home Medications ?Medication ?Instructions ?Recorded ?Confirmed ?Last Taken ?Type aspirin 81 mg tablet,delayed 81 mg PO DAILY 11/17/20 08/25/24 04/10/23 History release (Adult Low Dose Aspirin) Physical Exam Vital Signs and Narrative: Vital Signs: Last Vital Signs Temp 98.7 F 02/13/25 22:42 Pulse 51 02/14/25 00:21 Resp 16 02/14/25 00:21 BP 143/74 H 02/14/25 00:21 Pulse Ox 100 02/14/25 00:21 O2 Del Method Room Air 02/14/25 00:21 BMI result Body Mass Index 22.9 Gen: Appears be in no acute distress HEENT: NCAT, Moist mucosa. Pulmonary: Vesicular breath sounds, fair air entry CVS: Normal S1-S2 Abdomen: BS+, Soft, Nontender Extremities: Warm well perfused Neuro: Alert and awake. Results Labs 02/13/25 23:01 02/13/25 23:01 Labs: Laboratory Results - last 24 hr 02/13/25 02/13/25 02/13/25 22:22 22:40 23:01 MCV 92.7 MCH 32.8 MCHC 35.4 RDW 14.1 Plt Count 106 L D MPV 10.4 Immature Gran % (Auto) 0.3 Neut % (Auto) 76.3 H Lymph % (Auto) 14.5 L [place] % (Auto) 7.6 Eos % (Auto) 0.5 Baso % (Auto) 0.8 Lymph # (Auto) 0.9 L [place] # (Auto) 0.5 Eos # (Auto) 0.0 Baso # (Auto) 0.1 Abs Immat Gran (auto) 0.02 Absolute Neuts (auto) 4.7 Absolute Nucleated RBC 0.000 Nucleated RBC % (auto) 0.0 Anion Gap 16 Estim Creat Clear Calc 62.4 Estimated GFR > 60 POC Glucose 56 L* 120 H Random Glucose 234 H Calcium 8.8 Magnesium 2.1 Total Bilirubin 0.7 AST 51 H ALT 52 H Alkaline Phosphatase 342 H Total Protein 6.9 Albumin 4.3 Lipase 02/14/25 02/14/25 00:47 02:21 MCV MCH MCHC RDW Plt Count MPV Immature Gran % (Auto) Neut % (Auto) Lymph % (Auto) [place] % (Auto) Eos % (Auto) Baso % (Auto) Lymph # (Auto) [place] # (Auto) Eos # (Auto) Baso # (Auto) Abs Immat Gran (auto) Absolute Neuts (auto) Absolute Nucleated RBC Nucleated RBC % (auto) Anion Gap Estim Creat Clear Calc Estimated GFR POC Glucose 76 151 H Random Glucose Calcium Magnesium Total Bilirubin AST ALT Alkaline Phosphatase Total Protein Albumin Lipase Assessment and Plan (1) Syncope: Qualifiers: Syncope type: unspecified Qualified Code(s): R55 - Syncope and collapse Status: Acute Plan 64-year-old male with a past medical history of HTN, HLD, paroxysmal AFib on Eliquis presented to the hospital with a chief complaint of syncope. Near Syncope: Nonfocal examination EKG nonischemic. Will obtain CT head Orthostatic vitals Telemetry Gentle IV fluids Echocardiogram Hypoglycemia: Unclear etiology CT head and pelvis showed atrophic pancreas Will obtain MRI abdomen Will obtain hypoglycemia panel Continue D5 half NS Serial POC glucose checks Regular diet Will obtain random cortisol levels Endocrinology follow-up recommended Paroxysmal AFib: Rate controlled. Continue home Eliquis Alcohol use disorder: Counseled on avoiding alcohol use. Monitor on CIWA. DVT prophylaxis: Patient on Eliquis Code status: Full code Quality Stroke Does the patient have a stroke diagnosis?: No VTE Prior VTE?: No VTE Risk Level:: Medical - moderate - high VTE Device Contraindication: Treatment Not Indicated VTE Drug Contraindication: N/A - Med Ordered
[2025-02-14 03:25] LABS: Hemoglobin A1C 124.8149 umol/L; Total Hemoglobin (HGBA1C) 3836.2717 umol/L
[2025-02-14] MEDS: Dextrose 5 % and 0.45 % NaCl 1,000 ML 100 ML IVCONT ×2 (03:25→14:58)
[2025-02-14 03:28] LABS: Glucose, Whole Blood 113 mg/dL (60-115)
[2025-02-14 03:29] LABS: Alanine Aminotransferase 52 U/L (0-40); Albumin Level 4.0 g/dL (3.5-5.0); Alkaline Phosphatase 325 U/L (39-117); Anion Gap 11 (12-20); Aspartate Amino Transferase 58 U/L (5-37); Blood Urea Nitrogen 12 mg/dL (9-16); Calcium 8.4 mg/dL (8.4-10.2); Carbon Dioxide 28 mmol/L (22-29); Chloride 106 mmol/L (96-108); Creatinine Clr Calc Pharmacy 75.3; Estimated Glomerular Filt Rate > 60; Potassium 3.9 mmol/L (3.3-5.1); Sodium 141 mmol/L (135-145); Total Protein 6.4 g/dL (6.5-8.0)
[2025-02-14 03:31] LABS: Appearance Urine Error; Glucose Urine UA Negative (Negative); PH 5.5 (5.0-9.0); Specific Gravity - Urine >= 1.030 (1.005-1.025)
[2025-02-14 05:18] LABS: Glucose, Whole Blood 99 mg/dL (60-115)
--- NOTE | 2025-02-14 07:22 | PC.NURSE ---
MRI screening form complete and faxed.
[2025-02-14 08:14] LABS: Glucose, Whole Blood 95 mg/dL (60-115)
[2025-02-14 09:16] LABS: Glucose, Whole Blood 109 mg/dL (60-115)
--- NOTE | 2025-02-14 09:34 | MHC.CM.PN ---
PT REPORTS HE LIVES WITH HIS AND IS INDEPENDENT WITH CARE HE HAS NO DME AND NO SERVICES COPY OF HCP REQUESTED, PT REPORTS HIS IS HIS AGENT PCP: DANNIE LAGOS DCP: HOME VIA PRIVATE TRANSPORT
--- NOTE | 2025-02-14 10:06 | PHA.MEDREC ---
Addendum entered by Hyacinth Brady RPh 02/14/25 10:16: [facility] reviewed Original Note: Pharmacy Consult ? Medication Reconciliation Pharmacy has completed the medication reconciliation. Spoke with patient to confirm. He is no longer taking baby aspirin, famotidine, or lomotil. He also takes an OTC probiotic daily.
--- NOTE | 2025-02-14 10:44 | P.PNIM_ITS ---
Subjective Subjective Date of Service: 02/14/25 Review of Systems Follow up Hypoglycemia no pain or discomfort Physical Exam 2 Exam: Exam: Appearing in no acute distress lung sounds are clear to auscultation heart regular rate rhythm, clear S1, S2 positive bowel sounds, abdomen is soft, nontender neuro patient is alert x3, no focal deficits Vital Signs: Vital Signs: Last Vital Signs Temp 98.1 F 02/14/25 09:14 Pulse 56 02/14/25 09:14 Resp 16 02/14/25 09:14 BP 149/86 H 02/14/25 09:14 Pulse Ox 97 02/14/25 09:14 O2 Del Method Room Air 02/14/25 09:14 BMI result Body Mass Index 22.9 Objective Data Active Medications Acetaminophen (Acetaminophen 325 Mg Tablet) 650 mg PO Q6H PRN PRN Reason: Pain, Mild 1-3,fever,headache Apixaban (Apixaban 5 Mg Tablet) 5 mg PO BID [facility] Last Admin: 02/14/25 09:16 Dose: 5 mg Documented By: NICANOR Calcium Carbonate (Calcium Carbonate 750 Mg Tab.Chew) 750 mg PO Q4H PRN PRN Reason: Heartburn Dextrose/Sodium Chloride (D51/2ns) 1,000 mls @ 100 mls/hr IVCONT .Q10H [facility] Last Admin: 02/14/25 03:25 Dose: 100 mls/hr Documented By: KERI Magnesium Hydroxide (Milk Of Magnesia 30 Ml Oral.Susp) 30 ml PO DAILY PRN PRN Reason: Constipation Melatonin (Melatonin 3 Mg Tablet) 6 mg PO BEDTIME PRN PRN Reason: Insomnia Sodium Chloride (0.9 % Sodium Chloride Flush 3 Ml Syringe) 3 ml IVFLUSH QSHIFT [facility] Last Admin: 02/14/25 08:34 Dose: Not Given Documented By: NICANOR Non-Admin Reason: IV Running Labs 02/13/25 23:01 02/14/25 03:06 Labs: Laboratory Results - last 24 hr 02/13/25 02/13/25 02/13/25 22:22 22:40 23:01 MCV 92.7 MCH 32.8 MCHC 35.4 RDW 14.1 Plt Count 106 L D MPV 10.4 Immature Gran % (Auto) 0.3 Neut % (Auto) 76.3 H Lymph % (Auto) 14.5 L [place] % (Auto) 7.6 Eos % (Auto) 0.5 Baso % (Auto) 0.8 Lymph # (Auto) 0.9 L [place] # (Auto) 0.5 Eos # (Auto) 0.0 Baso # (Auto) 0.1 Abs Immat Gran (auto) 0.02 Absolute Neuts (auto) 4.7 Absolute Nucleated RBC 0.000 Nucleated RBC % (auto) 0.0 Anion Gap 16 Estim Creat Clear Calc 62.4 Estimated GFR > 60 POC Glucose 56 L* 120 H Random Glucose 234 H Estimat Average Glucose 100 Hemoglobin A1c % 5.1 Lactic Acid Calcium 8.8 Magnesium 2.1 Total Bilirubin 0.7 AST 51 H ALT 52 H Alkaline Phosphatase 342 H Total Protein 6.9 Albumin 4.3 Lipase 19 Random Cortisol Urine Color Urine Appearance Urine pH Ur Specific [place] Urine Protein Urine Glucose (UA) Urine Ketones Urine Blood Urine Nitrite Ur Leukocyte Esterase 02/14/25 02/14/25 02/14/25 00:47 02:21 03:06 MCV MCH MCHC RDW Plt Count MPV Immature Gran % (Auto) Neut % (Auto) Lymph % (Auto) [place] % (Auto) Eos % (Auto) Baso % (Auto) Lymph # (Auto) [place] # (Auto) Eos # (Auto) Baso # (Auto) Abs Immat Gran (auto) Absolute Neuts (auto) Absolute Nucleated RBC Nucleated RBC % (auto) Anion Gap 11 L Estim Creat Clear Calc 75.3 Estimated GFR > 60 POC Glucose 76 151 H Random Glucose 117 H Estimat Average Glucose Hemoglobin A1c % Lactic Acid 1.0 Calcium 8.4 Magnesium Total Bilirubin 0.7 AST 58 H ALT 52 H Alkaline Phosphatase 325 H Total Protein 6.4 L Albumin 4.0 Lipase Random Cortisol 11.5 Urine Color Urine Appearance Urine pH Ur Specific [place] Urine Protein Urine Glucose (UA) Urine Ketones Urine Blood Urine Nitrite Ur Leukocyte Esterase 02/14/25 02/14/25 02/14/25 03:12 03:18 05:14 MCV MCH MCHC RDW Plt Count MPV Immature Gran % (Auto) Neut % (Auto) Lymph % (Auto) [place] % (Auto) Eos % (Auto) Baso % (Auto) Lymph # (Auto) [place] # (Auto) Eos # (Auto) Baso # (Auto) Abs Immat Gran (auto) Absolute Neuts (auto) Absolute Nucleated RBC Nucleated RBC % (auto) Anion Gap Estim Creat Clear Calc Estimated GFR POC Glucose 113 99 Random Glucose Estimat Average Glucose Hemoglobin A1c % Lactic Acid Calcium Magnesium Total Bilirubin AST ALT Alkaline Phosphatase Total Protein Albumin Lipase Random Cortisol Urine Color Yellow Urine Appearance Error Urine pH 5.5 Ur Specific [place] >= 1.030 H Urine Protein Negative Urine Glucose (UA) Negative Urine Ketones Negative Urine Blood Negative Urine Nitrite Negative Ur Leukocyte Esterase Negative 02/14/25 02/14/25 07:11 09:12 MCV MCH MCHC RDW Plt Count MPV Immature Gran % (Auto) Neut % (Auto) Lymph % (Auto) [place] % (Auto) Eos % (Auto) Baso % (Auto) Lymph # (Auto) [place] # (Auto) Eos # (Auto) Baso # (Auto) Abs Immat Gran (auto) Absolute Neuts (auto) Absolute Nucleated RBC Nucleated RBC % (auto) Anion Gap Estim Creat Clear Calc Estimated GFR POC Glucose 95 109 Random Glucose Estimat Average Glucose Hemoglobin A1c % Lactic Acid Calcium Magnesium Total Bilirubin AST ALT Alkaline Phosphatase Total Protein Albumin Lipase Random Cortisol Urine Color Urine Appearance Urine pH Ur Specific [place] Urine Protein Urine Glucose (UA) Urine Ketones Urine Blood Urine Nitrite Ur Leukocyte Esterase Assessment and Plan (1) PAF (paroxysmal atrial fibrillation): Status: Acute (2) Hypoglycemia: Status: Acute Plan 64-year-old male with a past medical history of HTN, HLD, paroxysmal AFib on Eliquis presented to the hospital with a chief complaint of syncope. Near Syncope Nonfocal examination EKG nonischemic CT head Orthostatic vitals Gentle IV fluids Echocardiogram Hypoglycemia. Unclear etiology stable CT head and pelvis showed atrophic pancreas MRI abdomen ordered Continue D5 half NS Regular diet random cortisol levels 11.5 Endocrinology follow-up recommended Transaminitis Mild follow Paroxysmal AFib Rate controlled. Continue home Eliquis Alcohol use disorder Counseled on avoiding alcohol use. Monitor on CIWA. DVT prophylaxis: Patient on Eliquis Code status: Full code Quality Stroke Does the patient have a stroke diagnosis?: No VTE Prior VTE?: No VTE Risk Level:: Medical - moderate - high VTE Device Contraindication: Treatment Not Indicated VTE Drug Contraindication: N/A - Med Ordered
[2025-02-14 14:28] LABS: Glucose, Whole Blood 91 mg/dL (60-115)
--- NOTE | 2025-02-14 18:57 | PC.NURSE ---
No CIWA ordered per BANK RECONCILIATOR Denise Castillo.
[2025-02-14] MEDS: 0.9 % Sodium Chloride Flush 3 ML SYRINGE IVFLUSH (21:32)
[2025-02-15] MEDS: Dextrose 5 % and 0.45 % NaCl 1,000 ML 100 ML IVCONT (01:04)
[2025-02-15 03:35] VITALS: BP 119/60; PULSE 50; RESP 18; TEMP 36.4; O2SAT 99
[2025-02-15 07:21] VITALS: BP 145/69; PULSE 50; RESP 16; TEMP 36.7; O2SAT 100
[2025-02-15 08:17] LABS: MANUAL DIFF FLAG NO
[2025-02-15 08:24] LABS: Hematocrit 33.7 % (42.0-52.0); Hemoglobin 12.1 g/dl (14.0-18.0); Mean Corpuscular HGB Conc 35.9 g/dl (31.0-36.0); Mean Corpuscular Hemoglobin 33.4 pg (27.0-33.0); Mean Corpuscular Volume 93.1 fL (80.0-98.0); NRBC Abs Auto 0.000 X10*3/uL (0.0-0.012); NRBC Pct Auto 0.0 /100WBC (0.0-0.2); Platelet Count 107 X10*3/uL (160-400); Red Blood Count 3.62 X10*6/uL (4.60-5.80); White Blood Count 4.2 X10*3/uL (4.8-10.8)
[2025-02-15 08:25] LABS: Hematocrit 34.0 % (42.0-52.0); Hemoglobin 11.9 g/dl (14.0-18.0); Imm Gran Abs Auto 0.01 X10*3/uL (0.00-0.03); Imm Gran Pct Auto 0.2 % (0.0-0.4); Lymphocytes Absolute Auto 0.9 X10*3/uL (1.2-4.9); Mean Corpuscular HGB Conc 35.0 g/dl (31.0-36.0); Mean Corpuscular Hemoglobin 32.6 pg (27.0-33.0); Mean Corpuscular Volume 93.2 fL (80.0-98.0); NRBC Abs Auto 0.000 X10*3/uL (0.0-0.012); NRBC Pct Auto 0.0 /100WBC (0.0-0.2); Platelet Count 109 X10*3/uL (160-400); Red Blood Count 3.65 X10*6/uL (4.60-5.80); White Blood Count 4.2 X10*3/uL (4.8-10.8)
[2025-02-15 08:39] LABS: Anion Gap 8 (12-20); Blood Urea Nitrogen 8 mg/dL (9-16); Calcium 8.1 mg/dL (8.4-10.2); Carbon Dioxide 29 mmol/L (22-29); Chloride 109 mmol/L (96-108); Creatinine Clr Calc Pharmacy 74.5; Estimated Glomerular Filt Rate > 60; Potassium 3.9 mmol/L (3.3-5.1); Sodium 142 mmol/L (135-145)
[2025-02-15] MEDS: Metoprolol Succinate ER 50 MG TAB.ER.24H PO (09:12)
[2025-02-15] MEDS: 0.9 % Sodium Chloride Flush 3 ML SYRINGE IVFLUSH (09:12)
--- NOTE | 2025-02-15 09:17 | PM.DS ---
DS: Providers Provider Date of Service: 02/15/25 Date of admission: 02/14/25 02:29 Date of discharge: 02/15/25 Primary care physician: Eleuterio Zuñiga MD Consults: 02/14/25 02:32 Consult to Gastroenterology Routine Consulting Provider: [facility] Gastroenterology Services Reason for consultation: pancreatic atrophy DS: Diagnosis Discharge Diagnosis (1) PAF (paroxysmal atrial fibrillation): Status: Acute (2) Hypoglycemia: Status: Acute DS: Summary Hospital Course Hospital Course: History and physical as per admitting provider 64-year-old male with a past medical history of HTN, HLD, paroxysmal AFib on Eliquis presented to the hospital with a chief complaint of dizziness. Patient mentioned that he went out to have some drinks; after he came home he felt tired and exhausted; sat on the couch; when he got up he felt dizzy; he went to the bathroom he felt fuzzy and lightheaded; felt like he is going to lose consciousness but did not lose continence. Mentions he was aware of the surroundings throughout the time. Subsequently called his who called the ambulance to bring him to the hospital. When EMS arrived patient blood glucose levels were noted to be in 30s. Given dextrose with slight improvement in blood glucose levels. Follow the patient has eaten. Denies any seizure-like activity. Denies any chest pain or palpitations. Denies any illicit drug use. Denies any GI symptoms. Denies any fever chills cough or sputum production.Review of all other systems is negative except mentioned above ER course: Per ER team, patient blood glucose levels initially improved after the dextrose from the EMS. On arrival blood glucose levels were in 50s. On patient ate in the ER. The blood glucose levels were gradually improving. Patient was briefly placed on D10. Patient mentating well. 64-year-old man treated for near-syncope and hypoglycemia. Nonfocal examination, EKG with non ischemic abnormalities, CT head negative for acute abnormality, orthostatic vital signs negative, CT of the abdomen and pelvis did show atrophic pancreas, therefore abdominal MRI was ordered and showed mildly pancreatic atrophy with no evidence of pancreatitis, no pancreatic head mass or choledocholithiasis, status post gastric pull-through, no retroperitoneal or paraesophageal lymphadenopathy. Cortisol levels 11.5. Patient was treated with IV fluids, regular diet. Blood sugar has been stable, sinus rhythm alternating with atrial fibrillation on telemetry monitoring. Patient should follow up with his primary care provider and Endocrinology if warranted Transaminitis. Mild Paroxysmal atrial fibrillation. Rate controlled. Continue metoprolol and Eliquis Alcohol use disorder. Patient reports that he does not drink heavily on a daily basis. He did report that he went on vacation and was drinking more than usual. No signs of withdrawal during hospitalization Time Attestation Discharge Coordination Time (in mins): 42 Quality: Safe Use of Opioids Does Pt have an Active Cancer Diagnosis on the Problem List?: No Quality: Stroke Does the patient have a stroke diagnosis?: No Physical Exam Exam: Exam: Appearing in no acute distress head is normocephalic atraumatic eyes pupils are PERRLA sclera is anicteric mouth throat mucous membranes are intact and moist neck is supple no lymphadenopathy, no JVD noted lung sounds are clear to auscultation heart regular rate rhythm, clear S1, S2 positive bowel sounds, abdomen is soft, nontender neuro patient is alert x3, no focal deficits Vital Signs: Vital Signs: Last Vital Signs Temp 98.0 F 02/15/25 07:21 Pulse 50 02/15/25 07:21 Resp 16 02/15/25 07:21 BP 145/69 H 02/15/25 07:21 Pulse Ox 100 02/15/25 07:21 O2 Del Method Room Air 02/15/25 07:21 BMI result Body Mass Index 24.8 DS: Data Data Completed and Pending Labs on day of discharge: Laboratory Results - last 24 hr 02/14/25 02/15/25 02/15/25 14:22 07:57 07:57 WBC 4.2 L 4.2 L RBC 3.65 L Hgb Hct MCV MCH MCHC RDW Plt Count MPV Immature Gran % (Auto) Neut % (Auto) Lymph % (Auto) [place] % (Auto) Eos % (Auto) Baso % (Auto) Lymph # (Auto) [place] # (Auto) Eos # (Auto) Baso # (Auto) Abs Immat Gran (auto) Absolute Neuts (auto) Absolute Nucleated RBC Nucleated RBC % (auto) Sodium Potassium Chloride Carbon Dioxide Anion Gap BUN Creatinine Estim Creat Clear Calc Estimated GFR POC Glucose 91 Random Glucose Calcium 02/15/25 02/15/25 02/15/25 07:57 07:57 07:57 WBC RBC 3.62 L Hgb 11.9 L 12.1 L Hct 34.0 L 33.7 L MCV 93.2 MCH MCHC RDW Plt Count MPV Immature Gran % (Auto) Neut % (Auto) Lymph % (Auto) [place] % (Auto) Eos % (Auto) Baso % (Auto) Lymph # (Auto) [place] # (Auto) Eos # (Auto) Baso # (Auto) Abs Immat Gran (auto) Absolute Neuts (auto) Absolute Nucleated RBC Nucleated RBC % (auto) Sodium Potassium Chloride Carbon Dioxide Anion Gap BUN Creatinine Estim Creat Clear Calc Estimated GFR POC Glucose Random Glucose Calcium 02/15/25 02/15/25 02/15/25 07:57 07:57 07:57 WBC RBC Hgb Hct MCV 93.1 MCH 32.6 33.4 H MCHC 35.0 35.9 RDW 14.1 Plt Count MPV Immature Gran % (Auto) Neut % (Auto) Lymph % (Auto) [place] % (Auto) Eos % (Auto) Baso % (Auto) Lymph # (Auto) [place] # (Auto) Eos # (Auto) Baso # (Auto) Abs Immat Gran (auto) Absolute Neuts (auto) Absolute Nucleated RBC Nucleated RBC % (auto) Sodium Potassium Chloride Carbon Dioxide Anion Gap BUN Creatinine Estim Creat Clear Calc Estimated GFR POC Glucose Random Glucose Calcium 02/15/25 02/15/25 02/15/25 07:57 07:57 07:57 WBC RBC Hgb Hct MCV MCH MCHC RDW 14.1 Plt Count 109 L 107 L MPV 10.7 10.5 Immature Gran % (Auto) 0.2 Neut % (Auto) 67.4 Lymph % (Auto) 21.4 [place] % (Auto) 8.6 Eos % (Auto) 1.4 Baso % (Auto) 1.0 Lymph # (Auto) 0.9 L [place] # (Auto) 0.4 Eos # (Auto) 0.1 Baso # (Auto) 0.0 Abs Immat Gran (auto) 0.01 Absolute Neuts (auto) 2.8 Absolute Nucleated RBC 0.000 Nucleated RBC % (auto) Sodium Potassium Chloride Carbon Dioxide Anion Gap BUN Creatinine Estim Creat Clear Calc Estimated GFR POC Glucose Random Glucose Calcium 02/15/25 02/15/25 07:57 07:57 WBC RBC Hgb Hct MCV MCH MCHC RDW Plt Count MPV Immature Gran % (Auto) Neut % (Auto) Lymph % (Auto) [place] % (Auto) Eos % (Auto) Baso % (Auto) Lymph # (Auto) [place] # (Auto) Eos # (Auto) Baso # (Auto) Abs Immat Gran (auto) Absolute Neuts (auto) Absolute Nucleated RBC 0.000 Nucleated RBC % (auto) 0.0 0.0 Sodium 142 Potassium 3.9 Chloride 109 H Carbon Dioxide 29 Anion Gap 8 L BUN 8 L Creatinine 0.88 Estim Creat Clear Calc 74.5 Estimated GFR > 60 POC Glucose Random Glucose 136 H Calcium 8.1 L Preliminary micro results at discharge 02/14/25 03:06 Blood Culture - Preliminary Blood - Venous No growth after 24 hours. 02/14/25 03:06 Blood Culture - Preliminary Blood - Venous No growth after 24 hours. Discharge Plan Discharge Anticipated Discharge Date/Time: 02/15/25 07:37 Patient Disposition: Home, Self-Care Discharge Diagnosis: Hypoglycemia Presyncope Referrals: Eleuterio Zuñiga MD [Primary Care Provider, Internal Medicine] - 1 Week Discharge Medications: Continued Eliquis 5 mg tablet 5 mg PO BID Qty: 180 3RF metoprolol succinate 50 mg tablet extended release 24 hr 50 mg PO DAILY Qty: 90 3RF pantoprazole 20 mg tablet,delayed release (DR/EC) 20 mg PO DAILY@0630 dicyclomine 20 mg tablet 20 mg PO QID PRN (Reason: Abdominal Pain) oxycodone 5 mg tablet 5 mg PO Q8H PRN (Reason: moderate pain) atorvastatin 80 mg tablet 80 mg PO BEDTIME Probiotic 10 billion cell Capsule 10,000 mmu cells PO DAILY Discharge Orders: Discharge Order (Routine); Ordered 02/15/25 Ordered By: Denise Castillo Diet: Advance to usual diet Activity on Discharge: As tolerated Stand Alone Forms: Patient Portal Discharge page Print Language: Macedonian Care Plan Goals: Drink plenty of fluids, avoid alcohol especially in the heat Health Concerns: Hypoglycemia Presyncope Plan of Treatment: Follow up with primary care provider as needed Take all medications as prescribed Assessment: See discharge summary
--- NOTE | 2025-02-15 09:29 | MHC.CM.PN ---
PATIENT IS DISCHARGED TODAY TO HOME. PATIENT HAS ARRANGED FOR TRANSPORT HOME.
[2025-02-20 20:38] LABS: Pioglitazone None Detected; Rosiglitazone None Detected
== END 2025-02-15 10:40 | disposition home or self-care (01) | DRG 424 ==
LOC: HO.ED 23:51 → HO.EDOVER 02-14 02:54 → HO.IMC 02-14 11:31
PROVIDERS: Admitting Provider Hospitalist; Emergency Provider Internal Medicine; PCP Internal Medicine Medical Oncology; Visit Provider Nurse Practitioner Acute Care
DX: E16.2 Hypoglycemia, unspecified (principal); K86.89 Other specified diseases of pancreas; F10.90 Alcohol use, unspecified, uncomplicated; I48.0 Paroxysmal atrial fibrillation; Z79.01 Long term (current) use of anticoagulants; Z79.899 Other long term (current) drug therapy
CPT/HCPCS: 36415; 70450; 74177; 74183; 80048; 80053; 80337; 81003; 82533; 82947; 83036; 83605; 83690; 83735; 85025; 85027; 87040; 93005; 99222; 99285; A9585; Q9967

== ENCOUNTER → 2025-02-13 23:42 | Outpatient (BNV) | payer OTHER, SELFPAY | PROVIDERS: Emergency Provider Internal Medicine; PCP Internal Medicine Medical Oncology; Visit Provider Radiology Diagnostic Radiology | DX: R22.2 Localized swelling, mass and lump, trunk (principal) | CPT/HCPCS: 74177 ==

== ENCOUNTER 2025-02-14 02:29 | Outpatient (BNV) | payer OTHER, SELFPAY | END 2025-02-14 06:15 | PROVIDERS: Admitting Provider Hospitalist; Emergency Provider Internal Medicine; PCP Internal Medicine Medical Oncology; Visit Provider Specialist | DX: N28.1 Cyst of kidney, acquired (principal); R55 Syncope and collapse | CPT/HCPCS: 70450; 74183 ==

== ENCOUNTER 2025-02-14 02:29 | Outpatient (BNV) | payer OTHER, SELFPAY | END 2025-02-14 07:31 | PROVIDERS: Admitting Provider Hospitalist; Emergency Provider Internal Medicine; PCP Internal Medicine Medical Oncology; Visit Provider Internal Medicine | DX: R00.1 Bradycardia, unspecified (principal) | CPT/HCPCS: 93010 ==

== ENCOUNTER → 2025-02-14 02:29 | Outpatient (BNV) | payer OTHER, SELFPAY | PROVIDERS: Admitting Provider Hospitalist; Emergency Provider Internal Medicine; PCP Internal Medicine Medical Oncology; Visit Provider Nurse Practitioner Acute Care | DX: I48.0 Paroxysmal atrial fibrillation (principal); E16.2 Hypoglycemia, unspecified | CPT/HCPCS: 99499 ==